=== PATIENT | male | born 1940 | race Caucasian/White ===

== ENCOUNTER 2017-05-01 08:13 | Emergency (ER) | payer MEDICARE, OTHER ==
--- NOTE | 2017-05-01 09:11 | EDM.PDOC ---
ED HPI GENERAL MEDICAL PROBLEM - General Chief Complaint: General Stated Complaint: FALL Time Seen by Provider: 05/01/17 09:05 Source of Information: Reports: Patient, RN History Limitations: Reports: No Limitations - History of Present Illness INITIAL COMMENTS - FREE TEXT/NARRATIVE: 76 yo male fell on a wet floor in PT and was sent to the ER for evaluation. Incurred small abrasions to the medial R ankle and L elbow. 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) (none) Rt ankle Pain Score (Numeric/FACES): 10 - Related Data Allergies Allergy/AdvReac Type Severity Reaction Status Date / Time No Known Allergies Allergy Verified 05/01/17 08:24 Home Meds: Home Meds Benztropine Mesylate 0.5 mg PO BID 09/06/13 [History] Diltiazem HCl [Diltiazem 24Hr Cd] 180 mg PO DAILY 09/06/13 [History] Latanoprost [Xalatan 0.005% Ophth Soln] 1 drop EYEBOTH BEDTIME 09/06/13 [History ] Lurasidone [Latuda] 20 mg PO BEDTIME 09/06/13 [History] Niacin [Niacin ER] 1,000 mg PO BEDTIME 09/06/13 [History] Ranitidine HCl [Ranitidine] 150 mg PO BEDTIME 09/06/13 [History] Simvastatin [Zocor] 20 mg PO BEDTIME 09/06/13 [History] metFORMIN [Glucophage] 500 mg PO DAILY 09/06/13 [History] Cholecalciferol (Vitamin D3) [Vitamin D3] 1,000 units PO DAILY #100 tablet 10/23 [Rx] LORazepam 0.5 mg PO BID PRN #60 tablet 10/23/13 [Rx] Metoprolol Tartrate [Lopressor] 50 mg PO Q12H #60 tablet 10/23/13 [Rx] Carboxymethylcellulose Sodium [Refresh Plus 0.5%] 1 drop EYEBOTH QID PRN [History] hydrOXYzine Pamoate [Vistaril] 25 mg PO BID 11/29/13 [History] Hydrocodone/Acetaminophen [Hydrocodone-Acetaminophen 5-325] 1 - 2 tab PO Q4H PRN 04/10/14 [History] Multivitamin [Multiple Vitamins] 1 each PO DAILY 04/10/14 [History] Warfarin Sodium [Jantoven] 5 mg PO ASDIRECTED 04/10/14 [History] Polyethylene Glycol 3350 [MiraLAX] 17 gm PO DAILY PRN 05/01/17 [History] Past Medical History HEENT History: Reports: Glaucoma, Impaired Vision Cardiovascular History: Reports: High Cholesterol, Hypertension Other Genitourinary History: hernia repair Psychiatric History: Reports: Anxiety Endocrine/Metabolic History: Reports: Diabetes, Type II Social & Family History - Family History Family Medical History: Noncontributory - Tobacco Use Smoking Status *Q: Never Smoker Second Hand Smoke Exposure: No - Caffeine Use Caffeine Use: Reports: Coffee - Alcohol Use Days Per Week of Alcohol Use: 0 - Recreational Drug Use Recreational Drug Use: No ED ROS GENERAL - Review of Systems Review Of Systems: See Below Constitutional: Reports: No Symptoms Musculoskeletal: Reports: No Symptoms Skin: Reports: Erythema, Wound (minor abrasions) Neurological: Reports: No Symptoms ED EXAM, GENERAL - Physical Exam Exam: See Below Exam Limited By: No Limitations General Appearance: Alert, WD/WN, No Apparent Distress Extremities: Normal Inspection, Normal Range of Motion, Non-Tender, No Pedal Edema Neurological: Alert, Oriented, CN II-XII Intact, Normal Cognition, No Motor/ Sensory Deficits Psychiatric: Normal Affect, Normal Mood Skin Exam: Warm, Dry, Normal Color, Other (very minor abrasions of the medial R ankle and L elbow. ) Lymphatic: No Adenopathy Course - Vital Signs Text/Narrative:: ankle [id number] Last Recorded V/S: Last Vital Signs Temp 36.3 C 05/01/17 08:15 Pulse 52 L 05/01/17 08:15 Resp 17 05/01/17 08:15 BP 134/80 05/01/17 08:15 Pulse Ox 99 05/01/17 08:15 - Orders/Labs/Meds Orders: Active Orders 24 hr Category Date Time Status Ankle Min 3V Rt [CR] Stat Exams 05/01/17 08:29 Taken Departure - Departure Time of Disposition: 09:21 Disposition: Home, Self-Care 01 Condition: Good Clinical Impression: Abrasions of multiple sites - Discharge Information Referrals: Narciso Lezama MD [Primary Care Provider] - Forms: ED Department Discharge Additional Instructions: Keep wounds clean. Recheck for signs of infection. - My Orders Last 24 Hours: My Active Orders 05/01/17 08:29 Ankle Min 3V Rt [CR] Stat - Assessment/Plan Last 24 Hours: My Active Orders 05/01/17 08:29 Ankle Min 3V Rt [CR] Stat
[2017-05-01 09:28] VITALS: BP 114/70
--- NOTE | 2017-05-01 10:48 | CR ---
INDICATION: Fall. RIGHT ANKLE: Three views of the right ankle were obtained and revealed the ankle mortise to appear intact without evidence of a fracture or dislocation. There is noted mild hypertrophic change at the medial malleolus compatible with osteoarthritis of mild degree. Minimal hypertrophic change is also noted anteriorly off the tibia. Small plantar calcaneal spur is noted. IMPRESSION: 1. No acute fracture or dislocation. 2. Mild osteoarthritis. 3. Small heel spur. MTDD
== END 2017-05-01 09:28 | disposition home or self-care (01) ==
LOC: FB.ED 08:13
DX: S90.511A Abrasion, right ankle, initial encounter (principal); S50.312A Abrasion of left elbow, initial encounter; W19.XXXA Unspecified fall, initial encounter; I10 Essential (primary) hypertension; E11.9 Type 2 diabetes mellitus without complications; E78.00 Pure hypercholesterolemia, unspecified; F41.9 Anxiety disorder, unspecified; Z98.890 Other specified postprocedural states; Z79.01 Long term (current) use of anticoagulants; Z79.899 Other long term (current) drug therapy; Z79.84 Long term (current) use of oral hypoglycemic drugs
CPT/HCPCS: 73610-RT; 99283

== ENCOUNTER 2018-03-30 09:05 | Inpatient (IN) | payer MEDICARE ==
[2018-03-30] MEDS: Sodium Chloride 0.9% 10 ML Syringe FLUSH PRN (09:30)
--- NOTE | 2018-03-30 11:08 | CT ---
INDICATION: Confusion. CT HEAD WITHOUT CONTRAST: Serial contiguous 2.5 and 5 mm sections were obtained through the brain without contrast, 03/30/2018 - no comparisons. Total exam DLP = 950.31 mGy-cm. The paranasal sinuses were fairly well-aerated with some thickening of the lining of a right posterior ethmoidal air cell. The mastoid air cells appear relatively normal on the right, question possibly a postsurgical change on the left. The left internal auditory canal appears to be significantly larger than the right, raising question of a previous or current mass in that area. It is not definitely visualized on the soft tissue window, however. This should be correlated clinically. MRI for this area may be of further diagnostic benefit. Calcifications are noted in the internal carotid arteries. No shift of midline structures or ventricular abnormalities were identified. There does appear to be a mild degree of patchy decreased density in the frontoparietal white matter and also more posteriorly at the occipital lobes. This may be on the basis of microvascular type disease process but should be correlated clinically, as other cause of leukoencephalopathy cannot be excluded. No bleeding site or hematoma or other definite acute abnormality was identified. No definite cranial abnormality was seen. IMPRESSION: 1. No definite acute intracranial abnormality. 2. Atherosclerotic disease with calcifications in the internal carotid artery. 3. Mild degree of microvascular disease type changes are noted in the white matter. 4. Thickening of the lining of a right posterior ethmoidal air cell. 5. There appears to be widening of the left internal auditory canal. This should be correlated clinically. MRI may be helpful for further evaluation, as an intracanalicular neoplastic process cannot be excluded. Also, postsurgical change may be present at the left mastoid air cells. Report was called to Dr. Harper at 1021 hours on 03/30/2018. [facility]
--- NOTE | 2018-03-30 11:12 | CR ---
INDICATION: Confusion, heart history. CHEST: PA and lateral views of the chest were obtained 03/30/2018 and compared with 08/26/2009 and 09/10/2013. The heart remains normal in size and shape. The aorta is tortuous with calcification in the arch. Bony structures appear to be grossly intact. A definite active infiltrate or effusion was not identified. IMPRESSION: No acute process. Report was called to Dr. Harper at 1021 hours on 03/30/2018. [facility]
--- NOTE | 2018-03-30 13:29 | PCM.HP ---
H&P History of Present Illness - General Date of Service: 03/30/18 Admit Problem/Dx: Admission Diagnosis/Problem Admission Diagnosis/Problem Confusion with nonfocal neurological examination Source of Information: Patient, Old Records, Provider History Limitations: Reports: Altered Mental Status - History of Present Illness Initial Comments - Free Text/Narative: Patient is a 77-year-old male with a history of schizophrenia who presents to the emergency department with confusion. According to outside records, patient was seen at the [facility] yesterday with gout. He had pain for 2 days in his left great toe and has a history of gout and had been treated in the past with indomethacin. He was started on indomethacin and discharged home. At that time apparently his mental status was normal although he did complain of having been under a lot of stress with the loss of 2 siblings and conflict with his sister. Apparently this morning the patient went into cardiac rehabilitation which he apparently attends routinely and had been confused according to staff. Later he presented to the emergency department by taxi acutely confused. He was unsure of how he arrived at the emergency department, had no complaints of pain , was coherent with speech and he was able to ambulate without difficulty but was extremely disoriented. As I am examining him, he is still quite disoriented. He doesn't really know why he is here or exactly where he is, doesn 't know the date or the time, doesn't know his name. Is able to give me fairly clear history which is completely inaccurate of his morning and confabulates fairly convincingly, but occasionally does note that he feels confused and doesn 't understand what's going on. Past medical history per [place] chart: Recent visit for gout yesterday Visit in December 2017 for a rash on his feet which apparently resolved spontaneously. Coronary artery disease with history of atrial fibrillation status post cardioversion, cardiac catheterization in 2009 showing mild 3 vessel coronary artery disease, last EKG in 2016 unremarkable. Currently on anticoagulation with warfarin. Hyperlipidemia Type 2 diabetes mellitus with out insulin with good control, last A1c 5.8% on 09/04 Schizophrenia in remission Hypersomnia Dyshidrosis Arthropathy Cataracts and mild glaucoma both eyes Current medications per [place] chart: Metformin 500 mg daily Indomethacin started yesterday 50 mg by mouth 3 times a day with meals Ranitidine 150 mg by mouth at bedtime Refresh eyedrops MiraLAX daily for constipation Lopressor 50 mg by mouth twice a day Vitamin D 1000 mg daily Coumadin as per Coumadin clinic Simvastatin 20 mg by mouth daily at bedtime Verelan ophthalmic 1 drop both eyes at bedtime for glaucoma Clonazepam one half tablet every morning Cogentin 0.5 mg by mouth twice a day BuSpar 30 mg by mouth twice a day Multivitamin daily Ativan 0.5 mg by mouth daily as needed Latuda 40 mg by mouth daily Vistaril 25 mg by mouth twice a day Social history: Patient reportedly lives alone. He is single with no children. Nonsmoker, denies alcohol use, denies illicit drug use. Confirmed with sister. Frontal headache Pain Score (Numeric/FACES): 6 - Related Data Allergies/Adverse Reactions: Allergies Allergy/AdvReac Type Severity Reaction Status Date / Time No Known Allergies Allergy Verified 03/30/18 12:25 Home Medications: Home Meds Benztropine Mesylate 0.5 mg PO BID 09/06/13 [History] Latanoprost [Xalatan 0.005% Ophth Soln] 1 drop EYEBOTH BEDTIME 09/06/13 [History ] Lurasidone [Latuda] 40 mg PO BEDTIME 09/06/13 [History] Ranitidine HCl [Ranitidine] 150 mg PO BEDTIME 09/06/13 [History] Simvastatin [Zocor] 20 mg PO BEDTIME 09/06/13 [History] metFORMIN [Glucophage] 500 mg PO DAILY 09/06/13 [History] Cholecalciferol (Vitamin D3) [Vitamin D3] 1,000 units PO DAILY #100 tablet 10/23 [Rx] LORazepam 0.5 mg PO BID PRN #60 tablet 10/23/13 [Rx] Metoprolol Tartrate [Lopressor] 50 mg PO Q12H #60 tablet 10/23/13 [Rx] Carboxymethylcellulose Sodium [Refresh Plus 0.5%] 1 drop EYEBOTH QID PRN [History] hydrOXYzine Pamoate [Vistaril] 25 mg PO BID 11/29/13 [History] Multivitamin [Multiple Vitamins] 1 each PO DAILY 04/10/14 [History] Warfarin Sodium [Jantoven] 5 mg PO ASDIRECTED 04/10/14 [History] Polyethylene Glycol 3350 [MiraLAX] 17 gm PO DAILY PRN 05/01/17 [History] ClonazePAM [KlonoPIN] 0.25 mg PO DAILY 03/30/18 [History] Indomethacin 50 mg PO TID 03/30/18 [History] busPIRone HCl [busPIRone] 15 mg PO BID 03/30/18 [History] Past Medical History HEENT History: Reports: Glaucoma, Impaired Vision Cardiovascular History: Reports: High Cholesterol, Hypertension, Other (See Below) Other Cardiovascular History: Hx: Atrial flutter. Gastrointestinal History: Reports: GERD Other Genitourinary History: hernia repair Musculoskeletal History: Reports: Gout Psychiatric History: Reports: Anxiety, Schizophrenia Endocrine/Metabolic History: Reports: Diabetes, Type II - Infectious Disease History Infectious Disease History: Reports: Chicken Pox, Measles, Mumps - Past Surgical History HEENT Surgical History: Reports: Tonsillectomy Social & Family History - Family History Family Medical History: Noncontributory - Tobacco Use Smoking Status *Q: Unknown Ever Smoked Second Hand Smoke Exposure: No - Caffeine Use Caffeine Use: Reports: None - Recreational Drug Use Recreational Drug Use: No H&P Review of Systems - Review of Systems: Review Of Systems: ROS reveals no pertinent complaints other than HPI. Exam - Exam Exam: See Below - Vital Signs Vital Signs: Last Vital Signs Temp 36.7 C 03/30/18 11:50 Pulse 54 L 03/30/18 11:50 Resp 18 03/30/18 11:50 BP 148/79 H 03/30/18 11:50 Pulse Ox 95 03/30/18 11:50 Weight: 100.834 kg - Exam General: Alert, Cooperative HEENT: PERRLA, Conjunctiva Clear, Mucosa Moist & [place], Posterior Pharynx Clear Neck: Supple, Trachea Midline Lungs: Clear to Auscultation, Normal Respiratory Effort Cardiovascular: Regular Rate, Regular Rhythm, Normal S1, Normal S2 GI/Abdominal Exam: Normal Bowel Sounds, Soft, Non-Tender, No Distention Back Exam: Normal Inspection, Full Range of Motion Extremities: Normal Inspection, Normal Range of Motion, Pedal Edema (trace bilateral.) Skin: Warm, Dry, Intact (No rash.) Neurological: Cranial Nerves Intact, Reflexes Equal Bilateral, Strength Equal Bilateral, Normal Gait Neuro Extensive - Mental Status: Alert, Normal Mood/Affect, Disorientation to Place, Disorientation to Time, Memory Loss-Remote Events, Memory Loss-Recent Events (speech fluent, occasionally confabulates but other times recognizes his confusion.) Neuro Extensive - Motor, Sensory, Reflexes: CN II-XII Intact - Patient Data Lab Results Last 24 hrs: Laboratory Results - last 24 hr 03/30/18 03/30/18 03/30/18 Range/Units 09:15 09:15 09:15 WBC 7.2 (4.5-12.0) X10-3/uL RBC 5.18 (4.30-5.75) x10(6)uL Hgb 15.0 (11.5-15.5) g/dL Hct 45.3 (30.0-51.3) % MCV 87.5 (80-96) fL MCH 29.0 (27.7-33.6) pg MCHC 33.1 (32.2-35.4) g/dL RDW 13.5 (11.5-15.5) % Plt Count 213 (125-369) X10(3)uL MPV 9.1 (7.4-10.4) fL Neut % (Auto) 71.7 (46-82) % Lymph % (Auto) 18.7 (13-37) % Rogers % (Auto) 7.7 (4-12) % Eos % (Auto) 1 (1.0-5.0) % Baso % (Auto) 1 (0-2) % Neut # (Auto) 5.2 (1.6-8.3) # Lymph # (Auto) 1.3 (0.6-5.0) # Rogers # (Auto) 0.6 (0.0-1.3) # Eos # (Auto) 0.1 (0.0-0.8) # Baso # (Auto) 0.0 (0.0-0.2) # PT (8.7-11.1) INR (0.89-1.13) Sodium 139 (135-145) mmol/L Potassium 4.3 (3.5-5.3) mmol/L Chloride 102 (100-110) mmol/L Carbon Dioxide 28 (21-32) mmol/L BUN 18 (7-18) mg/dL Creatinine 1.2 (0.70-1.30) mg/dL Est Cr Clr Drug Dosing TNP Estimated GFR (MDRD) 59 L (>60) BUN/Creatinine Ratio 15.0 (9-20) Glucose 119 H (80-116) mg/dL Calcium 9.2 (8.6-10.2) mg/dL Total Bilirubin 0.6 (0.1-1.3) mg/dL AST 22 (5-25) IU/L ALT 31 (12-36) U/L Alkaline Phosphatase 61 (56-112) IU/L Troponin I < 0.017 L (<0.017-0.056) ng/mL Total Protein 8.5 H (6.0-8.0) g/dL Albumin 4.4 (3.2-4.6) g/dL Globulin 4.1 g/dL Albumin/Globulin Ratio 1.1 / Range/Units 09:15 WBC (4.5-12.0) X10-3/uL RBC (4.30-5.75) x10(6)uL Hgb (11.5-15.5) g/dL Hct (30.0-51.3) % MCV (80-96) fL MCH (27.7-33.6) pg MCHC (32.2-35.4) g/dL RDW (11.5-15.5) % Plt Count (125-369) X10(3)uL MPV (7.4-10.4) fL Neut % (Auto) (46-82) % Lymph % (Auto) (13-37) % Rogers % (Auto) (4-12) % Eos % (Auto) (1.0-5.0) % Baso % (Auto) (0-2) % Neut # (Auto) (1.6-8.3) # Lymph # (Auto) (0.6-5.0) # Rogers # (Auto) (0.0-1.3) # Eos # (Auto) (0.0-0.8) # Baso # (Auto) (0.0-0.2) # PT 27.5 H (8.7-11.1) INR 2.87 H (0.89-1.13) Sodium (135-145) mmol/L Potassium (3.5-5.3) mmol/L Chloride (100-110) mmol/L Carbon Dioxide (21-32) mmol/L BUN (7-18) mg/dL Creatinine (0.70-1.30) mg/dL Est Cr Clr Drug Dosing Estimated GFR (MDRD) (>60) BUN/Creatinine Ratio (9-20) Glucose (80-116) mg/dL Calcium (8.6-10.2) mg/dL Total Bilirubin (0.1-1.3) mg/dL AST (5-25) IU/L ALT (12-36) U/L Alkaline Phosphatase (56-112) IU/L Troponin I (<0.017-0.056) ng/mL Total Protein (6.0-8.0) g/dL Albumin (3.2-4.6) g/dL Globulin g/dL Albumin/Globulin Ratio Result Diagrams: 03/30/18 09:15 03/30/18 09:15 Imaging Impressions Last 24 hrs: Verbal report from ER doctor that Head CT was negative. - Problem List (1) Altered mental status SNOMED Code(s): 956352891 ICD Code: R41.82 - ALTERED MENTAL STATUS, UNSPECIFIED Status: Acute Current Visit: Yes Problem Details: Highly suspicious for toxic metabolic encephalopathy. Indomethacin can in less than 1% of cases cause an acute confusion. As the patient is not uncomfortable and clinically stable, we'll hold medication and see if altered mental status clears. (2) Diabetes mellitus type 2 SNOMED Code(s): 83328441 ICD Code: E11.9 - TYPE 2 DIABETES MELLITUS WITHOUT COMPLICATIONS Status: Acute Priority: High Current Visit: No Problem Details: Hold metformin for now. (3) Gastroesophageal reflux disease SNOMED Code(s): 566438123 ICD Code: K21.9 - GASTRO-ESOPHAGEAL REFLUX DISEASE WITHOUT ESOPHAGITIS Status: Chronic Priority: Low Current Visit: No Problem Details: Continue ranitidine. (4) Schizophrenia SNOMED Code(s): 59187540 ICD Code: F20.9 - SCHIZOPHRENIA, UNSPECIFIED Status: Chronic Priority: Medium Current Visit: No Problem Details: Will continue Latuda, hold Cogentin for now as it can be associated with confusion. Patient's symptoms are not consistent with acute schizophrenia. More consistent with a toxic- metabolic encephalopathy. (5) DVT prophylaxis SNOMED Code(s): 251169602, 637467163 ICD Code: [id number] - Status: Acute Current Visit: Yes Problem Details: I'm going to hold off on chemoprophylaxis at this time as diagnosis is unclear. We will use SCDs and early ambulation. Problem List Initiated/Reviewed/Updated: Yes Orders Last 24hrs: Active Orders 24 hr Category Date Time Status Patient Status [ADT] Routine ADT 03/30/18 11:28 Active Oxygen Therapy [RC] PRN Care 03/30/18 11:28 Active Vital Signs [RC] 00,04,08,12,16,20 Care 03/30/18 11:28 Active Sodium Chloride 0.9% [Saline Flush] Med 03/30/18 09:44 Active 10 ml FLUSH ASDIRECTED PRN Peripheral IV Insertion Adult [OM.PC] Routine Oth 03/30/18 09:44 Ordered Resuscitation Status Routine Resus Stat 03/30/18 11:28 Ordered EKG 12 Lead [EK] Routine Ther 03/30/18 09:44 Ordered Medication Orders Sodium Chloride (Saline Flush) 10 ml FLUSH ASDIRECTED PRN PRN Reason: Keep Vein Open Last Admin: 03/30/18 09:30 Dose: 10 ml Assessment/Plan Comment:: CODE STATUS reviewed from the patient's acute advanced healthcare directive. The patient is a DNR/DNI, no intubation, no tube feeds or IV fluids. Patient's sister and [facility] was notified of his hospitalization by phone.
[2018-03-30] MEDS ORDERED: Acetaminophen 325 MG Tab PO PRN (13:59)
[2018-03-30] MEDS ORDERED: Polyethylene Glycol 3350 Powder 17 GM Packet PO PRN (14:04)
[2018-03-30] MEDS ORDERED: Warfarin 5 MG Tab PO SCH (14:15)
[2018-03-30] MEDS ORDERED: Warfarin Sliding Scale PO SCH (14:30)
[2018-03-30] MEDS ORDERED: Warfarin 2.5 MG Tab PO SCH (17:00)
[2018-03-30] MEDS ORDERED: LURASIDONE 40 MG PO SCH (21:00)
[2018-03-30] MEDS ORDERED: Famotidine 20 MG Tab PO SCH (21:00)
[2018-03-30] MEDS ORDERED: Latanoprost 0.005% Ophth Soln 2.5 ML Bottle EYEBOTH SCH (21:00)
[2018-03-30] MEDS: Metoprolol Tartrate 50 MG Tab PO SCH (21:10)
[2018-03-31] MEDS: Sodium Chloride 0.9% 10 ML Syringe FLUSH PRN (07:29)
[2018-03-31 07:54] VITALS: BP 138/74
[2018-03-31] MEDS: Metoprolol Tartrate 50 MG Tab PO SCH (08:25)
--- NOTE | 2018-03-31 10:45 | PCM.DCSUM1 ---
Discharge Summary - Hospital Course Free Text/Narrative:: Date of admission: 03/30/18 Date of discharge: 03/31/18 Consults: None Procedures: Head CT was done which showed no acute changes to explain the patient's mental status change. History of present illness: Patient is a 77-year-old male who presented the day prior to admission to the clinic in his normal state of health with a total that he felt was gouty. He was started on indomethacin and the following day, the day of admission, presented to the emergency department with acute confusion. The patient was in no distress and labs were stable. Initial evaluation was negative. Patient was admitted for toxic metabolic encephalopathy evaluation versus schizophrenia worsening. Hospital course: See below. Patient resolved very quickly over the next 24 hours and mental status returned to baseline. At the time of discharge, the patient was alert and oriented 3, able to give a clear history of recent events and performed very well on partial Mini-Mental Status exam without any deficits in memory, serial counting and orientation. Discharge instructions: Patient discharged to home. Stopp taking indomethacin. Resume other home meds. Follow-up in the outpatient setting next week with his primary care provider. Follow-up with INR clinic on Monday as INR on day of discharge was 3.17. Patient instructed to hold warfarin the day of discharge and resume his usual schedule Monday. - Discharge Data Discharge Date: 03/31/18 Discharge Disposition: Home, W Home Health Agency 06 Condition: Good - Discharge Diagnosis/Problem(s) (1) Altered mental status SNOMED Code(s): 585438498 ICD Code: R41.82 - ALTERED MENTAL STATUS, UNSPECIFIED Status: Acute Current Visit: Yes Problem Details: Highly suspicious for toxic metabolic encephalopathy. Indomethacin can in less than 1% of cases cause an acute confusion. Patient's mental status is now clear. Ready to return home. (2) Diabetes mellitus type 2 SNOMED Code(s): 23066764 ICD Code: E11.9 - TYPE 2 DIABETES MELLITUS WITHOUT COMPLICATIONS Status: Acute Priority: High Current Visit: No Problem Details: May restart metformin. (3) Gastroesophageal reflux disease SNOMED Code(s): 358377561 ICD Code: K21.9 - GASTRO-ESOPHAGEAL REFLUX DISEASE WITHOUT ESOPHAGITIS Status: Chronic Priority: Low Current Visit: No Problem Details: Continue ranitidine. (4) Schizophrenia SNOMED Code(s): 53365778 ICD Code: F20.9 - SCHIZOPHRENIA, UNSPECIFIED Status: Chronic Priority: Medium Current Visit: No Problem Details: Restart outpatient medications as previously ordered. (5) DVT prophylaxis SNOMED Code(s): 081473558, 732687244 ICD Code: [id number] - Status: Acute Current Visit: Yes Problem Details: Chronically anticoagulated. - Patient Summary/Data Consults: Consultations 03/30/18 14:08 Pharmacy Consult [Consult to Pharmacy] [CONS] Routine Comment: Physician Instructions: Quantity: Reason for Consult: warfarin dosing Special Instructions: INR 2-3 a fib indication - Patient Instructions Diet: Heart Healthy Diet Activity: As Tolerated Other/Special Instructions: You were admitted to the hospital with altered mental status likely due to your new medication indomethacin. Do not take this medication again. You may resume all your other home medications except hold your warfarin just for today and then restart your usual dose tomorrow. You should get your INR checked on Monday. Follow-up next week with your primary care provider in the clinic. - Discharge Plan Home Medications: Home Meds Benztropine Mesylate 0.5 mg PO BID 09/06/13 [History] Latanoprost [Xalatan 0.005% Ophth Soln] 1 drop EYEBOTH BEDTIME 09/06/13 [History ] Lurasidone [Latuda] 40 mg PO BEDTIME 09/06/13 [History] Ranitidine HCl [Ranitidine] 150 mg PO BEDTIME 09/06/13 [History] Simvastatin [Zocor] 20 mg PO BEDTIME 09/06/13 [History] metFORMIN [Glucophage] 500 mg PO DAILY 09/06/13 [History] Cholecalciferol (Vitamin D3) [Vitamin D3] 1,000 units PO DAILY #100 tablet 10/23 [Rx] LORazepam 0.5 mg PO BID PRN #60 tablet 10/23/13 [Rx] Metoprolol Tartrate [Lopressor] 50 mg PO Q12H #60 tablet 10/23/13 [Rx] Carboxymethylcellulose Sodium [Refresh Plus 0.5%] 1 drop EYEBOTH QID PRN [History] hydrOXYzine Pamoate [Vistaril] 25 mg PO BID 11/29/13 [History] Multivitamin [Multiple Vitamins] 1 each PO DAILY 04/10/14 [History] Warfarin Sodium [Jantoven] 5 mg PO SUMOTUWETHSA 04/10/14 [History] Polyethylene Glycol 3350 [MiraLAX] 17 gm PO DAILY PRN 05/01/17 [History] ClonazePAM [KlonoPIN] 0.25 mg PO DAILY 03/30/18 [History] Warfarin [Coumadin] 2.5 mg PO FR 03/30/18 [History] busPIRone HCl [busPIRone] 15 mg PO BID 03/30/18 [History] Patient Handouts: Confusion, Supporting Someone With Anxiety, Deep Vein Thrombosis Forms: ED Department Discharge Referrals: Narciso Lezama MD [Primary Care Provider] - - General Info Date of Service: 03/31/18 Subjective Update: On day of discharge patient was alert and oriented and feeling well. He felt back to baseline. No chest pain, no shortness of breath, no headache, no nausea , no vomiting. Appetite good. Ambulating and up in the room independently. - Patient Data Vitals - Most Recent: Last Vital Signs Temp 36.7 C 03/31/18 07:25 Pulse 54 L 03/31/18 08:25 Resp 20 03/31/18 07:25 BP 138/74 03/31/18 08:25 Pulse Ox 97 03/31/18 07:25 Weight - Most Recent: 100.471 kg I&O - Last 24 hours: Intake & Output 03/30/18 03/31/18 03/31/18 22:59 06:59 14:59 Intake Total 500 300 240 Output Total 300 550 500 Balance 200 -250 -260 Lab Results - Last 24 hrs: Laboratory Results - last 24 hr 03/30/18 03/30/18 03/30/18 Range/Units 09:17 14:25 14:25 WBC (4.5-12.0) X10-3/uL RBC (4.30-5.75) x10(6)uL Hgb (11.5-15.5) g/dL Hct (30.0-51.3) % MCV (80-96) fL MCH (27.7-33.6) pg MCHC (32.2-35.4) g/dL RDW (11.5-15.5) % Plt Count (125-369) X10(3)uL MPV (7.4-10.4) fL Neut % (Auto) (46-82) % Lymph % (Auto) (13-37) % [place] % (Auto) (4-12) % Eos % (Auto) (1.0-5.0) % Baso % (Auto) (0-2) % Neut # (Auto) (1.6-8.3) # Lymph # (Auto) (0.6-5.0) # Dubois # (Auto) (0.0-1.3) # Eos # (Auto) (0.0-0.8) # Baso # (Auto) (0.0-0.2) # PT (8.7-11.1) INR (0.89-1.13) Sodium (135-145) mmol/L Potassium (3.5-5.3) mmol/L Chloride (100-110) mmol/L Carbon Dioxide (21-32) mmol/L BUN (7-18) mg/dL Creatinine (0.70-1.30) mg/dL Est Cr Clr Drug Dosing mL/min Estimated GFR (MDRD) (>60) BUN/Creatinine Ratio (9-20) Glucose (80-116) mg/dL POC Glucose 112 (80-116) mg/dL Calcium (8.6-10.2) mg/dL Phosphorus 2.7 (2.6-4.6) mg/dL Magnesium 2.0 (1.8-2.5) mg/dL Total Bilirubin (0.1-1.3) mg/dL AST (5-25) IU/L ALT (12-36) U/L Alkaline Phosphatase (56-112) IU/L Ammonia Total Protein (6.0-8.0) g/dL Albumin (3.2-4.6) g/dL Globulin g/dL Albumin/Globulin Ratio Vitamin B12 745 (193-986) pg/mL TSH, Ultra Sensitive 1.25 (0.36-3.74) IU/mL Urine Color (YELLOW) Urine Appearance (CLEAR) Urine pH (5.0-6.5) Ur Specific [place] (1.010-1.025) Urine Protein (NEGATIVE) mg/dL Urine Glucose (UA) (NEGATIVE) mg/dL Urine Ketones (NEGATIVE) mg/dL Urine Occult Blood (NEGATIVE) Urine Nitrite (NEGATIVE) Urine Bilirubin (NEGATIVE) Urine Urobilinogen (NEGATIVE) mg/dL Ur Leukocyte Esterase (NEGATIVE) Urine RBC (0) Urine WBC (0) Ur Squamous Epith Cells (NS,R,O) Urine Bacteria (NS) Urine Opiates Screen (NEGATIVE) Ur Oxycodone Screen (NEGATIVE) Ur Propoxyphene Screen (NEGATIVE) Ur Barbituates Screen (NEGATIVE) Ur Tricyclics Screen (NEGATIVE) Ur Phencyclidine Scrn (NEGATIVE) Ur Amphetamine Screen (NEGATIVE) Urine MDMA Screen (NEGATIVE) U Benzodiazepines Scrn (NEGATIVE) U Cocaine Metab Screen (NEGATIVE) U Marijuana (THC) Screen (NEGATIVE) 03/30/18 03/30/18 03/30/18 Range/Units 14:25 17:21 18:20 WBC (4.5-12.0) X10-3/uL RBC (4.30-5.75) x10(6)uL Hgb (11.5-15.5) g/dL Hct (30.0-51.3) % MCV (80-96) fL MCH (27.7-33.6) pg MCHC (32.2-35.4) g/dL RDW (11.5-15.5) % Plt Count (125-369) X10(3)uL MPV (7.4-10.4) fL Neut % (Auto) (46-82) % Lymph % (Auto) (13-37) % [place] % (Auto) (4-12) % Eos % (Auto) (1.0-5.0) % Baso % (Auto) (0-2) % Neut # (Auto) (1.6-8.3) # Lymph # (Auto) (0.6-5.0) # [place] # (Auto) (0.0-1.3) # Eos # (Auto) (0.0-0.8) # Baso # (Auto) (0.0-0.2) # PT (8.7-11.1) INR (0.89-1.13) Sodium (135-145) mmol/L Potassium (3.5-5.3) mmol/L Chloride (100-110) mmol/L Carbon Dioxide (21-32) mmol/L BUN (7-18) mg/dL Creatinine (0.70-1.30) mg/dL Est Cr Clr Drug Dosing mL/min Estimated GFR (MDRD) (>60) BUN/Creatinine Ratio (9-20) Glucose (80-116) mg/dL POC Glucose 115 (80-116) mg/dL Calcium (8.6-10.2) mg/dL Phosphorus (2.6-4.6) mg/dL Magnesium (1.8-2.5) mg/dL Total Bilirubin (0.1-1.3) mg/dL AST (5-25) IU/L ALT (12-36) U/L Alkaline Phosphatase (56-112) IU/L Ammonia Total Protein (6.0-8.0) g/dL Albumin (3.2-4.6) g/dL Globulin g/dL Albumin/Globulin Ratio Vitamin B12 (193-986) pg/mL TSH, Ultra Sensitive (0.36-3.74) IU/mL Urine Color (YELLOW) Urine Appearance (CLEAR) Urine pH (5.0-6.5) Ur Specific [place] (1.010-1.025) Urine Protein (NEGATIVE) mg/dL Urine Glucose (UA) (NEGATIVE) mg/dL Urine Ketones (NEGATIVE) mg/dL Urine Occult Blood (NEGATIVE) Urine Nitrite (NEGATIVE) Urine Bilirubin (NEGATIVE) Urine Urobilinogen (NEGATIVE) mg/dL Ur Leukocyte Esterase (NEGATIVE) Urine RBC (0) Urine WBC (0) Ur Squamous Epith Cells (NS,R,O) Urine Bacteria (NS) Urine Opiates Screen Negative (NEGATIVE) Ur Oxycodone Screen Negative (NEGATIVE) Ur Propoxyphene Screen Negative (NEGATIVE) Ur Barbituates Screen Negative (NEGATIVE) Ur Tricyclics Screen Negative (NEGATIVE) Ur Phencyclidine Scrn Negative (NEGATIVE) Ur Amphetamine Screen Negative (NEGATIVE) Urine MDMA Screen Negative (NEGATIVE) U Benzodiazepines Scrn Negative (NEGATIVE) U Cocaine Metab Screen Negative (NEGATIVE) U Marijuana (THC) Screen Negative (NEGATIVE) 03/30/18 03/30/18 03/31/18 Range/Units 18:20 21:14 06:22 WBC (4.5-12.0) X10-3/uL RBC (4.30-5.75) x10(6)uL Hgb (11.5-15.5) g/dL Hct (30.0-51.3) % MCV (80-96) fL MCH (27.7-33.6) pg MCHC (32.2-35.4) g/dL RDW (11.5-15.5) % Plt Count (125-369) X10(3)uL MPV (7.4-10.4) fL Neut % (Auto) (46-82) % Lymph % (Auto) (13-37) % [place] % (Auto) (4-12) % Eos % (Auto) (1.0-5.0) % Baso % (Auto) (0-2) % Neut # (Auto) (1.6-8.3) # Lymph # (Auto) (0.6-5.0) # [place] # (Auto) (0.0-1.3) # Eos # (Auto) (0.0-0.8) # Baso # (Auto) (0.0-0.2) # PT (8.7-11.1) INR (0.89-1.13) Sodium (135-145) mmol/L Potassium (3.5-5.3) mmol/L Chloride (100-110) mmol/L Carbon Dioxide (21-32) mmol/L BUN (7-18) mg/dL Creatinine (0.70-1.30) mg/dL Est Cr Clr Drug Dosing mL/min Estimated GFR (MDRD) (>60) BUN/Creatinine Ratio (9-20) Glucose (80-116) mg/dL POC Glucose 131 H 120 H (80-116) mg/dL Calcium (8.6-10.2) mg/dL Phosphorus (2.6-4.6) mg/dL Magnesium (1.8-2.5) mg/dL Total Bilirubin (0.1-1.3) mg/dL AST (5-25) IU/L ALT (12-36) U/L Alkaline Phosphatase (56-112) IU/L Ammonia Total Protein (6.0-8.0) g/dL Albumin (3.2-4.6) g/dL Globulin g/dL Albumin/Globulin Ratio Vitamin B12 (193-986) pg/mL TSH, Ultra Sensitive (0.36-3.74) IU/mL Urine Color Yellow (YELLOW) Urine Appearance Clear (CLEAR) Urine pH 7.0 H (5.0-6.5) Ur Specific [place] 1.005 L (1.010-1.025) Urine Protein Negative (NEGATIVE) mg/dL Urine Glucose (UA) Normal (NEGATIVE) mg/dL Urine Ketones Negative (NEGATIVE) mg/dL Urine Occult Blood Negative (NEGATIVE) Urine Nitrite Negative (NEGATIVE) Urine Bilirubin Negative (NEGATIVE) Urine Urobilinogen Normal (NEGATIVE) mg/dL Ur Leukocyte Esterase Negative (NEGATIVE) Urine RBC 0-5 (0) Urine WBC 0-5 (0) Ur Squamous Epith Cells Rare (NS,R,O) Urine Bacteria Few H (NS) Urine Opiates Screen (NEGATIVE) Ur Oxycodone Screen (NEGATIVE) Ur Propoxyphene Screen (NEGATIVE) Ur Barbituates Screen (NEGATIVE) Ur Tricyclics Screen (NEGATIVE) Ur Phencyclidine Scrn (NEGATIVE) Ur Amphetamine Screen (NEGATIVE) Urine MDMA Screen (NEGATIVE) U Benzodiazepines Scrn (NEGATIVE) U Cocaine Metab Screen (NEGATIVE) U Marijuana (THC) Screen (NEGATIVE) 03/31/18 03/31/18 03/31/18 Range/Units 06:25 06:25 06:25 WBC 5.0 (4.5-12.0) X10-3/uL RBC 4.59 (4.30-5.75) x10(6)uL Hgb 13.6 (11.5-15.5) g/dL Hct 40.3 (30.0-51.3) % MCV 87.8 (80-96) fL MCH 29.5 (27.7-33.6) pg MCHC 33.7 (32.2-35.4) g/dL RDW 13.6 (11.5-15.5) % Plt Count 186 (125-369) X10(3)uL MPV 9.4 (7.4-10.4) fL Neut % (Auto) 57.8 (46-82) % Lymph % (Auto) 28.1 (13-37) % [place] % (Auto) 9.4 (4-12) % Eos % (Auto) 4 (1.0-5.0) % Baso % (Auto) 1 (0-2) % Neut # (Auto) 2.9 (1.6-8.3) # Lymph # (Auto) 1.4 (0.6-5.0) # [place] # (Auto) 0.5 (0.0-1.3) # Eos # (Auto) 0.2 (0.0-0.8) # Baso # (Auto) 0.0 (0.0-0.2) # PT 30.4 H (8.7-11.1) INR 3.17 H (0.89-1.13) Sodium 139 (135-145) mmol/L Potassium 4.2 (3.5-5.3) mmol/L Chloride 104 (100-110) mmol/L Carbon Dioxide 31 (21-32) mmol/L BUN 15 (7-18) mg/dL Creatinine 1.0 (0.70-1.30) mg/dL Est Cr Clr Drug Dosing 71.93 mL/min Estimated GFR (MDRD) > 60 (>60) BUN/Creatinine Ratio 15.0 (9-20) Glucose 121 H (80-116) mg/dL POC Glucose (80-116) mg/dL Calcium 8.5 L (8.6-10.2) mg/dL Phosphorus (2.6-4.6) mg/dL Magnesium (1.8-2.5) mg/dL Total Bilirubin 0.6 (0.1-1.3) mg/dL AST 20 (5-25) IU/L ALT 26 D (12-36) U/L Alkaline Phosphatase 50 L (56-112) IU/L Ammonia Total Protein 7.2 (6.0-8.0) g/dL Albumin 3.1 L (3.2-4.6) g/dL Globulin 4.1 g/dL Albumin/Globulin Ratio 0.8 Vitamin B12 (193-986) pg/mL TSH, Ultra Sensitive (0.36-3.74) IU/mL Urine Color (YELLOW) Urine Appearance (CLEAR) Urine pH (5.0-6.5) Ur Specific [place] (1.010-1.025) Urine Protein (NEGATIVE) mg/dL Urine Glucose (UA) (NEGATIVE) mg/dL Urine Ketones (NEGATIVE) mg/dL Urine Occult Blood (NEGATIVE) Urine Nitrite (NEGATIVE) Urine Bilirubin (NEGATIVE) Urine Urobilinogen (NEGATIVE) mg/dL Ur Leukocyte Esterase (NEGATIVE) Urine RBC (0) Urine WBC (0) Ur Squamous Epith Cells (NS,R,O) Urine Bacteria (NS) Urine Opiates Screen (NEGATIVE) Ur Oxycodone Screen (NEGATIVE) Ur Propoxyphene Screen (NEGATIVE) Ur Barbituates Screen (NEGATIVE) Ur Tricyclics Screen (NEGATIVE) Ur Phencyclidine Scrn (NEGATIVE) Ur Amphetamine Screen (NEGATIVE) Urine MDMA Screen (NEGATIVE) U Benzodiazepines Scrn (NEGATIVE) U Cocaine Metab Screen (NEGATIVE) U Marijuana (THC) Screen (NEGATIVE) Med Orders - Current: Current Medications Acetaminophen (Tylenol) 650 mg PO Q4H PRN PRN Reason: Pain (Mild 1-3)/fever Famotidine (Pepcid) 20 mg PO BEDTIME [facility] Last Admin: 03/30/18 21:10 Dose: 20 mg Latanoprost (Xalatan 0.005% Ophth Soln) 0 ml EYEBOTH BEDTIME [facility] Last Admin: 03/30/18 21:09 Dose: 1 drop Metoprolol Tartrate (Lopressor) 50 mg PO Q12H [facility] Last Admin: 03/31/18 08:25 Dose: 50 mg Non-Formulary Medication (Lurasidone [Latuda]) 40 mg PO BEDTIME [facility] Polyethylene Glycol (Miralax) 17 gm PO DAILY PRN PRN Reason: Constipation Sodium Chloride (Saline Flush) 10 ml FLUSH ASDIRECTED PRN PRN Reason: Keep Vein Open Last Admin: 03/31/18 07:29 Dose: 10 ml Warfarin Sodium (Coumadin Sliding Scale) 1 each PO ASDIRECTED [facility] Warfarin Sodium (Coumadin) 1.25 mg PO 1600 [facility] Stop: 03/31/18 16:01 Discontinued Medications Warfarin Sodium (Coumadin) 2.5 mg PO 1600 [facility] Stop: 03/30/18 17:01 Last Admin: 03/30/18 17:23 Dose: 2.5 mg - Exam General: Reports: Alert, Oriented, Cooperative, No Acute Distress HEENT: Reports: Pupils Equal, Pupils Reactive Neck: Reports: Supple Lungs: Reports: Clear to Auscultation, Normal Respiratory Effort Cardiovascular: Reports: Regular Rate, Regular Rhythm, No Murmurs GI/Abdominal Exam: Normal Bowel Sounds, Soft, Non-Tender, No Distention Extremities: Normal Inspection, No Pedal Edema Skin: Reports: Warm, Dry, Intact Psy/Mental Status: Reports: Alert, Normal Affect, Normal Mood
[2018-03-31] MEDS ORDERED: Warfarin 2.5 MG Tab PO SCH (16:00)
--- NOTE | 2018-04-02 10:59 | ER ---
DATE SEEN: 03/30/2018 HISTORY OF PRESENT ILLNESS: This 77-year-old resident of [facility] came to cardiac rehab today and became very confused. Cardiac Rehab then sent him to the ED for further evaluation. When asked why he is here, he said "I must have collapsed, I feel like I am in a dream. I think I came here for some kind of checkup." He thinks it is May, he thinks it is Monday and has slight nausea, is slightly lightheaded and thinks it is the fall season and football season is on. 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 He is oriented x1. He does not know the season. He is oriented to self, has mild old fund of knowledge, but he is able to add, but has difficulty subtracting and speaks slowly and thinks that people are going to have to take care of his dog at home. He would call the people where he worked, Jey at [employer] [facility], and they will take care of his dog. He does not know if he has a dog at home. The patient lives alone. PAST MEDICAL HISTORY: Schizophrenia in remission, type 2 diabetes, arthropathy, atrial flutter resolved, coronary artery disease, dyslipidemia, and he is using Coumadin. CURRENT MEDICATIONS: 1. Metformin 500 mg daily. 2. Indocin t.i.d. for arthritis. 3. Zantac 150 mg at bedtime. 4. Refresh eye drops. 5. MiraLax. 6. Metoprolol tartrate twice a day 50 mg daily. 7. Vitamin D. 8. Warfarin 5 mg daily. 9. Simvastatin. 10.Xalatan 1 drop both eyes at bedtime. 11.Klonopin 0.5 mg in the morning. 12.Cogentin. 13.BuSpar. 14.Multivitamins. 15.Lorazepam. 16.Latuda 40 mg daily. 17.Hydroxyzine. ALLERGIES: No allergies. PAST SURGICAL HISTORY: He thinks he has had previous surgery of appendectomy. REVIEW OF SYSTEMS: Negative except for wears glasses and decreased hearing. Denies chest pain, shortness of breath, or cough or abdominal discomfort. He has mild nausea. He knows he has hypertension and GERD. Denies constipation or blood in the stool. Denies difficulty passing urine and has mild arthritis in his right knee. PHYSICAL EXAMINATION: VITAL SIGNS: Blood pressure 154/70. Heart rate is sinus rhythm, 61. HEENT: PERRLA intact. Pharynx without abnormality. Gag in place. Mucosa moist. Mouth is dry. Hearing is slightly decreased. Wears glasses. NECK: Soft bruits, almost imperceptible. HEART: S1, S2. No murmur. LUNGS: Clear. No rales, rhonchi, or wheezes. ABDOMEN: Soft. No guarding. No abdominal discomfort. Bowel sounds normal. Increased abdominal girth. No CVA percussion tenderness. SPINE: Nontender to palpation. EXTREMITIES: Lower extremities, palpation of the right medial and lateral joint lines, mild tenderness. No swelling. Lower extremities, no edema. Deep tendon reflexes, hypoactive, but present in upper and lower extremities. NEURO: Cranial nerves 2 through 12 intact. Oriented x2. He walks with a walker. He is slightly unsteady with mild truncal ataxia when sitting up. DIAGNOSTIC STUDIES: CT of the head demonstrated microvascular calcification of internal carotid artery. Chest x-ray, no abnormalities noted. Laboratory Findings: Hemoglobin normal 15.0, white count normal 7200 with normal differential, 72 PMNs, 19 lymphocytes, 8 monos, platelets normal 213,000. INR is elevated 2.87 (on Coumadin). Complete metabolic panel is normal. Troponin 0.017 and is normal. Glucose slightly elevated at 119, GFR 59, otherwise sodium 139, potassium 4.3, chloride 102, CO2 of 28, BUN 18, creatinine 1.2. ASSESSMENT: 1. Schizophrenia. 2. Schizophrenic break possibly. 3. Rule out toxic metabolic encephalopathy related to taking excessive Latuda. He is not on lithium. 4. Rule out hypothyroidism. 5. Obesity. 6. Rule out global amnesia. 7. Right knee arthritis. 8. Diabetes with well-controlled glucose. 9. Marked confusion consistent with global amnesia, however, will take time to figure this out. 10.Hypertension, controlled. 11.Gastroesophageal reflux disease. 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 13.Dyslipidemia. He is on anticoagulants. The patient discussed with Dr. Sutherland. The patient admitted for observation. EKG demonstrated sinus rhythm without ST elevation or arrhythmia. His atrial fibrillation in the past has resolved/atrial arrhythmias resolved. 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 He does not have that today and he has had mild tremor more on the right compared to the left, slow, possible early parkinsonian changes or schizophrenia- mediated tremor that he has had all along. /[id number] BEULAH/OTTONIEL
== END 2018-03-31 11:35 | disposition home health service (06) | DRG 92 ==
LOC: FB.ED 09:05 → FB.MS 11:28 → OBSVTOIN 11:28
PROVIDERS: ADMIT Family Medicine; ATTEND Family Medicine
DX: R41.82 Altered mental status, unspecified (principal); G92 Toxic encephalopathy; I48.92 Unspecified atrial flutter; Z66 Do not resuscitate; T39.395A Adverse effect of other nonsteroidal anti-inflammatory drugs [NSAID], initial encounter; F20.9 Schizophrenia, unspecified; E11.9 Type 2 diabetes mellitus without complications; Z79.01 Long term (current) use of anticoagulants; I25.10 Atherosclerotic heart disease of native coronary artery without angina pectoris; E78.5 Hyperlipidemia, unspecified; M19.90 Unspecified osteoarthritis, unspecified site; I10 Essential (primary) hypertension; K21.9 Gastro-esophageal reflux disease without esophagitis; H40.9 Unspecified glaucoma; M10.9 Gout, unspecified; H54.7 Unspecified visual loss; Z79.84 Long term (current) use of oral hypoglycemic drugs
CPT/HCPCS: 36415; 70450; 71046; 80053; 80305-QW; 81001; 82140; 82607; 82962; 83735; 84100; 84443; 84484; 85025; 85610; 93005; 99285; A9270-GY; J7050

== ENCOUNTER 2018-12-22 06:05 | Emergency (ER) | payer MEDICARE ==
--- NOTE | 2018-12-22 06:43 | EDM.PDOC ---
<Dakotah Eaton M - Last Filed: 12/22/18 08:34> ED HPI GENERAL MEDICAL PROBLEM - General Chief Complaint: Chest Pain Stated Complaint: CHEST PAIN Time Seen by Provider: 12/22/18 06:20 chest Pain Score (Numeric/FACES): 4 - Related Data Allergies Allergy/AdvReac Type Severity Reaction Status Date / Time indomethacin Allergy Confusion Verified 12/22/18 06:33 Home Meds: Home Meds Benztropine Mesylate 0.5 mg PO DAILY 09/06/13 [History] Lurasidone [Latuda] 40 mg PO BEDTIME 09/06/13 [History] Simvastatin [Zocor] 20 mg PO BEDTIME 09/06/13 [History] metFORMIN [Glucophage] 500 mg PO DAILY 09/06/13 [History] Cholecalciferol (Vitamin D3) [Vitamin D3] 1,000 units PO DAILY #100 tablet 10/23 [Rx] Metoprolol Tartrate [Lopressor] 50 mg PO Q12H #60 tablet 10/23/13 [Rx] Multivitamin [Multiple Vitamins] 1 each PO DAILY 04/10/14 [History] Warfarin Sodium [Jantoven] 5 mg PO DAILY 04/10/14 [History] ClonazePAM [KlonoPIN] 0.5 mg PO DAILY 03/30/18 [History] busPIRone HCl [busPIRone] 30 mg PO DAILY 03/30/18 [History] Ranitidine HCl [Ranitidine] 150 mg PO DAILY 12/22/18 [History] Course - Vital Signs Last Recorded V/S: Last Vital Signs Temp 36.5 C 12/22/18 06:10 Pulse 64 12/22/18 06:10 Resp 16 12/22/18 07:00 BP 145/70 H 12/22/18 07:00 Pulse Ox 97 12/22/18 07:00 Pt was signed out to me at 7 am due to gilberto back pain Tx: Toradol Reexam: Pt was doing better and requested to be D/C'd Impression: Chronic Low back pain with exacerbation. - Orders/Labs/Meds Labs: Laboratory Tests 12/22/18 12/22/18 12/22/18 Range/Units 06:25 06:25 06:25 WBC 8.2 (4.5-12.0) X10-3/uL RBC 4.83 (4.30-5.75) x10(6)uL Hgb 14.0 (13.5-17.8) g/dL Hct 42.2 (30.0-51.3) % MCV 87.4 (80-96) fL MCH 29.0 (27.7-33.6) pg MCHC 33.2 (32.2-35.4) g/dL RDW 13.8 (11.5-15.5) % Plt Count 220 (125-369) X10(3)uL MPV 9.1 (7.4-10.4) fL Neut % (Auto) 63.5 (46-82) % Lymph % (Auto) 21.9 (13-37) % Loup % (Auto) 9.1 (4-12) % Eos % (Auto) 3 (1.0-5.0) % Baso % (Auto) 2 (0-2) % Neut # (Auto) 5.2 (1.6-8.3) # Lymph # (Auto) 1.8 (0.6-5.0) # Loup # (Auto) 0.7 (0.0-1.3) # Eos # (Auto) 0.3 (0.0-0.8) # Baso # (Auto) 0.2 (0.0-0.2) # PT 27.1 H (8.7-11.1) INR 2.82 H (0.89-1.13) D-Dimer, Quantitative 0.27 (0.0-0.59) mg/LFEU Sodium 139 (135-145) mmol/L Potassium 3.9 (3.5-5.3) mmol/L Chloride 103 (100-110) mmol/L Carbon Dioxide 29 (21-32) mmol/L BUN 20 H (7-18) mg/dL Creatinine 0.9 (0.70-1.30) mg/dL Est Cr Clr Drug Dosing TNP Estimated GFR (MDRD) > 60 (>60) BUN/Creatinine Ratio 22.2 H (9-20) Glucose 134 H (80-116) mg/dL Calcium 8.9 (8.6-10.2) mg/dL Total Bilirubin 0.6 (0.1-1.3) mg/dL AST 17 D (5-25) IU/L ALT 19 D (12-36) U/L Alkaline Phosphatase 62 (56-112) IU/L Troponin I (<0.017-0.056) ng/mL Total Protein 7.3 (6.0-8.0) g/dL Albumin 3.4 (3.2-4.6) g/dL Globulin 3.9 g/dL Albumin/Globulin Ratio 0.9 /03/06 Range/Units 06:25 WBC (4.5-12.0) X10-3/uL RBC (4.30-5.75) x10(6)uL Hgb (13.5-17.8) g/dL Hct (30.0-51.3) % MCV (80-96) fL MCH (27.7-33.6) pg MCHC (32.2-35.4) g/dL RDW (11.5-15.5) % Plt Count (125-369) X10(3)uL MPV (7.4-10.4) fL Neut % (Auto) (46-82) % Lymph % (Auto) (13-37) % Loup % (Auto) (4-12) % Eos % (Auto) (1.0-5.0) % Baso % (Auto) (0-2) % Neut # (Auto) (1.6-8.3) # Lymph # (Auto) (0.6-5.0) # Loup # (Auto) (0.0-1.3) # Eos # (Auto) (0.0-0.8) # Baso # (Auto) (0.0-0.2) # PT (8.7-11.1) INR (0.89-1.13) D-Dimer, Quantitative (0.0-0.59) mg/LFEU Sodium (135-145) mmol/L Potassium (3.5-5.3) mmol/L Chloride (100-110) mmol/L Carbon Dioxide (21-32) mmol/L BUN (7-18) mg/dL Creatinine (0.70-1.30) mg/dL Est Cr Clr Drug Dosing Estimated GFR (MDRD) (>60) BUN/Creatinine Ratio (9-20) Glucose (80-116) mg/dL Calcium (8.6-10.2) mg/dL Total Bilirubin (0.1-1.3) mg/dL AST (5-25) IU/L ALT (12-36) U/L Alkaline Phosphatase (56-112) IU/L Troponin I < 0.017 L (<0.017-0.056) ng/mL Total Protein (6.0-8.0) g/dL Albumin (3.2-4.6) g/dL Globulin g/dL Albumin/Globulin Ratio Meds: Medications Discontinued Medications Generic Name Dose Route Start Last Admin Trade Name Freq PRN Reason Stop Dose Admin Ketorolac Tromethamine 30 mg 12/22/18 07:50 12/22/18 08:00 Toradol IM 12/22/18 07:51 30 mg ONETIME ONE Administration Departure - Departure Time of Disposition: 08:35 Disposition: Home, Self-Care 01 Condition: Good Clinical Impression: 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 Please f/u, come back if your symptoms gt worse acutely <Kobe Rodriguez - Last Filed: 12/24/18 07:24> ED HPI GENERAL MEDICAL PROBLEM - General Source of Information: Reports: Patient, EMS History Limitations: Reports: No Limitations - History of Present Illness INITIAL COMMENTS - FREE TEXT/NARRATIVE: Karan comes into [facility] ED with L sided chest pain, with some radiation into the LUE. Pain seems dull, intermittent, and some features of numbness, although he could not quantify the intensity. Pain seems to correlate with a "sciatic condition" affecting his LLE which has been managed recently with PT. There is no diaphoresis, marli SOB, GI upset or palpitations. He reports med compliance. Past Medical History HEENT History: Reports: Glaucoma, Impaired Vision Cardiovascular History: Reports: High Cholesterol, Hypertension, Other (See Below) Other Cardiovascular History: Hx: Atrial flutter. Gastrointestinal History: Reports: GERD Other Genitourinary History: hernia repair Musculoskeletal History: Reports: Gout Psychiatric History: Reports: Anxiety, Schizophrenia Endocrine/Metabolic History: Reports: Diabetes, Type II - Infectious Disease History Infectious Disease History: Reports: Chicken Pox, Measles, Mumps - Past Surgical History HEENT Surgical History: Reports: Tonsillectomy Social & Family History - Family History Family Medical History: Noncontributory - Caffeine Use Caffeine Use: Reports: None ED ROS GENERAL - Review of Systems Review Of Systems: See Below Constitutional: Reports: No Symptoms HEENT: Reports: No Symptoms Respiratory: Reports: No Symptoms Cardiovascular: Reports: Chest Pain, Edema Endocrine: Reports: No Symptoms GI/Abdominal: Reports: No Symptoms : Reports: No Symptoms Musculoskeletal: Reports: Leg Pain Skin: Reports: No Symptoms Neurological: Reports: Numbness, Tingling Psychiatric: Reports: No Symptoms Hematologic/Lymphatic: Reports: No Symptoms Immunologic: Reports: No Symptoms ED EXAM, GENERAL - Physical Exam Exam: See Below Exam Limited By: No Limitations General Appearance: Alert, WD/WN, No Apparent Distress, Obese Eye Exam: Bilateral Eye: EOMI, Normal Inspection, PERRL Ears: Normal External Exam Nose: Normal Inspection Throat/Mouth: Normal Inspection, Normal Oropharynx Head: Normocephalic Neck: Normal Inspection, Supple Respiratory/Chest: No Respiratory Distress, Lungs Clear, Normal Breath Sounds, No Accessory Muscle Use, Chest Non-Tender Cardiovascular: Regular Rate, Rhythm, No Murmur GI/Abdominal: Normal Bowel Sounds, Soft, Non-Tender, No Organomegaly, No Distention, No Mass (Male) Exam: Deferred Rectal (Males) Exam: Deferred Back Exam: Normal Inspection Extremities: Pedal Edema Neurological: Alert, Oriented, CN II-XII Intact, No Motor/Sensory Deficits Psychiatric: Flat Affect Skin Exam: Warm, Dry, Intact, Normal Color Lymphatic: No Adenopathy Course - Vital Signs Last Recorded V/S: Last Vital Signs Temp 36.5 C 12/22/18 06:10 Pulse 64 12/22/18 06:10 Resp 16 12/22/18 07:00 BP 145/70 H 12/22/18 07:00 Pulse Ox 97 12/22/18 07:00 - Orders/Labs/Meds Meds: Medications Discontinued Medications Generic Name Dose Route Start Last Admin Trade Name Freq PRN Reason Stop Dose Admin Ketorolac Tromethamine 30 mg 12/22/18 07:50 12/22/18 08:00 Toradol IM 12/22/18 07:51 30 mg ONETIME ONE Administration Departure - Departure Condition: Fair - Problem List & Annotations (1) Chest pain SNOMED Code(s): 31380850 Code(s): R07.9 - CHEST PAIN, UNSPECIFIED Status: Acute Priority: High Annotation/Comment:: No furthur episodes. (2) Sciatica associated with disorder of lumbosacral spine SNOMED Code(s): 26625212, 283549651 Code(s): M53.87 - OTHER SPECIFIED DORSOPATHIES, LUMBOSACRAL REGION Status: Acute - Problem List Review Problem List Initiated/Reviewed/Updated: Yes - Assessment/Plan Plan: Follow up with PCP.
[2018-12-22 07:06] VITALS: BP 145/70
[2018-12-22] MEDS ORDERED: Ketorolac 30 MG/ML SDV IM ONE (07:50)
== END 2018-12-22 08:55 | disposition home or self-care (01) ==
LOC: FB.ED 06:05
DX: M54.42 Lumbago with sciatica, left side (principal); R07.9 Chest pain, unspecified; I10 Essential (primary) hypertension; E78.00 Pure hypercholesterolemia, unspecified; E11.9 Type 2 diabetes mellitus without complications; K21.9 Gastro-esophageal reflux disease without esophagitis; Z79.899 Other long term (current) drug therapy; Z79.84 Long term (current) use of oral hypoglycemic drugs; Z79.01 Long term (current) use of anticoagulants; Z88.8 Allergy status to other drugs, medicaments and biological substances
CPT/HCPCS: 36415; 80053; 84484; 85025; 85379; 85610; 93005; 96372; 99285; J1885

== ENCOUNTER 2019-09-24 05:01 | Emergency (ER) | payer MEDICARE ==
--- NOTE | 2019-09-24 05:48 | EDM.PDOC ---
ED HPI GENERAL MEDICAL PROBLEM - General Chief Complaint: General Stated Complaint: confusion Time Seen by Provider: 09/24/19 05:10 Source of Information: Reports: Patient History Limitations: Reports: No Limitations - History of Present Illness INITIAL COMMENTS - FREE TEXT/NARRATIVE: Patient presented to the ED via EMS because of confusion. [facility] staff reported that he is confused and required more help than usual but when he arrived in the ED he is AAOx3 and is able to follow commands and transferred himself from the gurney to the bed. - Related Data Allergies Allergy/AdvReac Type Severity Reaction Status Date / Time indomethacin Allergy Confusion Verified 12/22/18 06:33 Home Meds: Home Meds Benztropine Mesylate 0.5 mg PO DAILY 09/06/13 [History] Lurasidone [Latuda] 40 mg PO BEDTIME 09/06/13 [History] metFORMIN [Glucophage] 500 mg PO DAILY 09/06/13 [History] Metoprolol Tartrate [Lopressor] 50 mg PO Q12H #60 tablet 10/23/13 [Rx] Multivitamin [Multiple Vitamins] 1 each PO DAILY 04/10/14 [History] Warfarin Sodium [Jantoven] 5 mg PO DAILY 04/10/14 [History] ClonazePAM [KlonoPIN] 0.5 mg PO DAILY 03/30/18 [History] busPIRone HCl [busPIRone] 30 mg PO DAILY 03/30/18 [History] Past Medical History HEENT History: Reports: Glaucoma, Impaired Vision Cardiovascular History: Reports: High Cholesterol, Hypertension, Other (See Below) Other Cardiovascular History: Hx: Atrial flutter. Gastrointestinal History: Reports: GERD Other Genitourinary History: hernia repair Musculoskeletal History: Reports: Gout Psychiatric History: Reports: Anxiety, Schizophrenia Endocrine/Metabolic History: Reports: Diabetes, Type II - Infectious Disease History Infectious Disease History: Reports: Chicken Pox, Measles, Mumps - Past Surgical History HEENT Surgical History: Reports: Tonsillectomy Social & Family History - Family History Family Medical History: Noncontributory - Caffeine Use Caffeine Use: Reports: None ED ROS GENERAL - Review of Systems Review Of Systems: See Below Constitutional: Reports: No Symptoms HEENT: Reports: No Symptoms Respiratory: Reports: No Symptoms Cardiovascular: Reports: No Symptoms Endocrine: Reports: No Symptoms GI/Abdominal: Reports: No Symptoms : Reports: No Symptoms Musculoskeletal: Reports: No Symptoms Skin: Reports: No Symptoms Neurological: Reports: No Symptoms Psychiatric: Denies: Confusion Hematologic/Lymphatic: Reports: No Symptoms Immunologic: Reports: No Symptoms ED EXAM, GENERAL - Physical Exam Exam: See Below Exam Limited By: No Limitations General Appearance: Alert, No Apparent Distress Ears: Normal External Exam, Normal Canal, Hearing Grossly Normal Nose: Normal Inspection, Normal Mucosa, No Blood Throat/Mouth: Normal Inspection, Normal Lips, Normal Teeth Head: Atraumatic, Normocephalic Neck: Normal Inspection, Supple, Non-Tender, Full Range of Motion Respiratory/Chest: No Respiratory Distress, Lungs Clear, Normal Breath Sounds, No Accessory Muscle Use, Chest Non-Tender Cardiovascular: Normal Peripheral Pulses, Regular Rate, Rhythm, No Edema, No Gallop, No JVD, No Murmur, No Rub GI/Abdominal: Normal Bowel Sounds, Soft, Non-Tender, No Organomegaly, No Distention, No Abnormal Bruit, No Mass, Pelvis Stable Neurological: Alert, Oriented, CN II-XII Intact, Normal Cognition, Normal Gait, Normal Reflexes, No Motor/Sensory Deficits Psychiatric: Normal Affect, Normal Mood Skin Exam: Warm, Dry, Intact, Normal Color Lymphatic: No Adenopathy Course - Vital Signs Text/Narrative:: reassurance continue meds for UTI Last Recorded V/S: Last Vital Signs Temp 36.8 C 09/24/19 05:11 Pulse 102 H 09/24/19 05:11 Resp 18 09/24/19 05:11 BP 151/81 H 09/24/19 05:11 Pulse Ox 96 09/24/19 05:11 Departure - Departure Time of Disposition: 05:45 Disposition: Home, Self-Care 01 Condition: Good Clinical Impression: UTI (urinary tract infection) - Discharge Information Instructions: Urinary Tract Infection, Adult, [id number] Referrals: PCP,None [Primary Care Provider] - Forms: ED Department Discharge Additional Instructions: increase oral fluids continue your medicines for UTI follow up as needed Sepsis Event Note - Focused Exam Date Exam was Performed: 09/26/19 Time Exam was Performed: 05:52
[2019-09-24 05:57] VITALS: BP 151/81; PULSE 102
== END 2019-09-24 06:43 | disposition home or self-care (01) ==
LOC: FB.ED 05:01
DX: N39.0 Urinary tract infection, site not specified (principal); I10 Essential (primary) hypertension; E11.9 Type 2 diabetes mellitus without complications; F20.9 Schizophrenia, unspecified; Z88.8 Allergy status to other drugs, medicaments and biological substances; Z79.899 Other long term (current) drug therapy; Z79.84 Long term (current) use of oral hypoglycemic drugs
CPT/HCPCS: 99283; 99284

== ENCOUNTER 2019-09-28 19:08 | Emergency (ER) | payer MEDICARE ==
[2019-09-28] MEDS ORDERED: Metoprolol Tartrate 50 MG Tab PO ONE (21:03)
[2019-09-28 21:38] VITALS: BP 152/82; PULSE 61
--- NOTE | 2019-09-29 01:04 | ER ---
DATE SEEN: 09/28/2019 CHIEF COMPLAINT: Confusion. HISTORY OF PRESENT ILLNESS: A 78-year-old male who was brought in by ambulance from [facility] because of confusion. I saw him yesterday with swelling of the legs and he appeared more talkative than usual. According to the nurses, he has had a UTI and was recently placed on several antibiotics. He denies any fever or chills. There is no weakness or speech disturbance. He himself has increased speech and complains of bad dreams. He also has some hallucinations. PAST MEDICAL HISTORY: Schizophrenia, type 2 diabetes, and hypertension. MEDICATIONS AND ALLERGIES: Reviewed. SOCIAL HISTORY: Does not smoke or drink or use any drugs. He lives at the [facility]. REVIEW OF SYSTEMS: Other systems were negative, and he is ambulatory and independent with a walker. PHYSICAL EXAMINATION: VITAL SIGNS: Initial blood pressure 148/78 and repeat was 169/69. He is afebrile. Pulse is 75. HEAD: Atraumatic. EYES: Pupils are equal and reactive to light. NECK: Supple. CHEST: Clear. MENTAL STATUS: He is alert and oriented x2. NEUROLOGIC: No focal findings. DIAGNOSTIC DATA: Labs were normal including a CBC, UA, troponin, and even the CT of the head and chest x-ray were unremarkable. FINAL IMPRESSION: 1. Acute alteration of mental status. 2. Schizophrenia. PLAN: Continue current prescriptions, which include Latuda, BuSpar, and clonazepam p.r.n. I gave him 1 dose of metoprolol to bring down his blood pressure, and I advised the independent living facility to have him see his psychiatrist on Monday to discuss his prescriptions. /[id number] ULYSSES/MODL
--- NOTE | 2019-09-30 12:22 | CR ---
INDICATION: Altered mental status. CHEST, 2 VIEWS: PA and lateral views of the chest, 09/28/19, were compared to 03/30/18 and 09/10/13, and revealed little interval change with no definite acute process. The heart appears normal in size and shape or at the upper limits of normal in size. The aorta is tortuous with calcification in the arch. An active infiltrate or effusion was not identified. Bony structures appear to be grossly intact. IMPRESSION: No acute process. Fairly stable appearance of the chest. A mild degree of ASHD may be present. MTDD
== END 2019-09-28 22:05 | disposition home or self-care (01) ==
LOC: FB.ED 19:08
DX: R41.82 Altered mental status, unspecified (principal); F20.9 Schizophrenia, unspecified; I10 Essential (primary) hypertension; E11.9 Type 2 diabetes mellitus without complications
CPT/HCPCS: 36415; 70450; 71046; 80048; 81001; 84484; 85025; 86140; 99283; 99285; A9270

== ENCOUNTER 2020-12-29 19:09 | Emergency (ER) | payer MEDICARE ==
[2020-12-29] MEDS ORDERED: Sodium Chloride 0.9% 10 ML Syringe FLUSH PRN (19:11)
[2020-12-29] MEDS ORDERED: 50% Dextrose in Water 50 ML Syringe IVPUSH PRN (19:23)
[2020-12-29] MEDS ORDERED: Glucagon,Human Recombinant 1 MG Vial IM PRN (19:23)
[2020-12-29] MEDS ORDERED: Insulin Lispro 100 Unit/ML 3 ML KwikPen SUBCUT STA (19:23)
[2020-12-29] MEDS ORDERED: Morphine 2 MG/ML SYRINGE IVPUSH STA (19:24)
--- NOTE | 2020-12-29 20:00 | EDM.PDOC ---
ED HPI GENERAL MEDICAL PROBLEM - General Stated Complaint: shakiness Time Seen by Provider: 12/29/20 19:15 Source of Information: Reports: Patient, Assisted Records History Limitations: Reports: No Limitations - History of Present Illness INITIAL COMMENTS - FREE TEXT/NARRATIVE: Patient presented to the ED from the [facility] because of increasing confusion and is shaking. He was c/o headache and abdominal pain. There is no N/V/D. No fever, chills, cough or cold symptoms. headache and abd pain Pain Score (Numeric/FACES): 8 - Related Data Allergies Allergy/AdvReac Type Severity Reaction Status Date / Time indomethacin Allergy Confusion Verified 09/28/19 19:22 Home Meds: Home Meds Benztropine Mesylate 0.5 mg PO DAILY 09/06/13 [History] Lurasidone [Latuda] 40 mg PO BEDTIME 09/06/13 [History] metFORMIN [Glucophage] 500 mg PO DAILY 09/06/13 [History] Metoprolol Tartrate [Lopressor] 50 mg PO Q12H #60 tablet 10/23/13 [Rx] Multivitamin [Multiple Vitamins] 1 each PO DAILY 04/10/14 [History] Warfarin Sodium [Jantoven] 5 mg PO DAILY 04/10/14 [History] ClonazePAM [KlonoPIN] 0.5 mg PO DAILY 03/30/18 [History] busPIRone HCl [busPIRone] 30 mg PO DAILY 03/30/18 [History] Carboxymethylcellulose Sodium [Lubricating Plus] 1 drop EYEBOTH ASDIRECTED PRN 09/28/19 [History] Cholecalciferol (Vitamin D3) [Vitamin D3] 1,000 unit PO DAILY 09/28/19 [History] Ranitidine HCl [Ranitidine] 150 mg DAILY 09/28/19 [History] Simvastatin 20 mg PO DAILY 09/28/19 [History] Acetaminophen/oxyCODONE [Percocet 325-5 MG] 1 each PO Q4H PRN #10 tab 12/29/20 [Rx] Doxycycline [Vibra-Tabs] 100 mg PO BID #20 tablet 12/29/20 [Rx] Past Medical History HEENT History: Reports: Glaucoma, Impaired Vision Cardiovascular History: Reports: Afib, High Cholesterol, Hypertension, Other (See Below) Other Cardiovascular History: Hx: Atrial flutter. Gastrointestinal History: Reports: GERD Genitourinary History: Reports: UTI, Recurrent Other Genitourinary History: hernia repair Musculoskeletal History: Reports: Arthritis, Gout, Osteoarthritis Other Musculoskeletal History: Muscle weakness. Neurological History: Reports: Neuropathy, Diabetic Psychiatric History: Reports: Anxiety, Schizophrenia Endocrine/Metabolic History: Reports: Diabetes, Type II, Obesity/BMI 30+ - Infectious Disease History Infectious Disease History: Reports: Chicken Pox, Measles, Mumps - Past Surgical History HEENT Surgical History: Reports: Tonsillectomy GI Surgical History: Reports: Colonoscopy, Hernia Repair/Other Social & Family History - Family History Family Medical History: No Pertinent Family History - Caffeine Use Caffeine Use: Reports: Coffee, Tea ED ROS GENERAL - Review of Systems Review Of Systems: See Below Constitutional: Reports: No Symptoms HEENT: Reports: No Symptoms Respiratory: Reports: No Symptoms Cardiovascular: Reports: No Symptoms Endocrine: Reports: No Symptoms GI/Abdominal: Reports: Abdominal Pain : Reports: No Symptoms Musculoskeletal: Reports: No Symptoms Skin: Reports: No Symptoms Neurological: Reports: Confusion, Headache Psychiatric: Reports: No Symptoms Hematologic/Lymphatic: Reports: No Symptoms ED EXAM, GENERAL - Physical Exam Exam: See Below Exam Limited By: Altered Mental Status General Appearance: Alert, No Apparent Distress Ears: Normal External Exam, Normal Canal Nose: Normal Inspection, Normal Mucosa, No Blood Throat/Mouth: Normal Inspection Head: Atraumatic, Normocephalic Neck: Normal Inspection, Supple, Non-Tender, Full Range of Motion Respiratory/Chest: No Respiratory Distress, Lungs Clear, Normal Breath Sounds Cardiovascular: Normal Peripheral Pulses, Regular Rate, Rhythm, No Edema, No Gallop, No JVD, No Murmur, No Rub GI/Abdominal: Normal Bowel Sounds, Soft, No Organomegaly, Other (diffusely tender) Back Exam: Normal Inspection, Full Range of Motion Extremities: Normal Inspection, Normal Range of Motion, Non-Tender, No Pedal Edema, Normal Capillary Refill Neurological: Alert, Oriented, CN II-XII Intact, Normal Cognition, Normal Gait, Normal Reflexes, No Motor/Sensory Deficits Psychiatric: Normal Affect #1 Interpretation EKG Date: 12/29/20 Time: 19:47 Rhythm: A-Fib Rate (Beats/Min): 74 [place]: Normal P-Wave: Absent QRS: Normal ST-T: Normal QT: Normal Comparison: No Change (AFIB) EKG Interpretation Comments: AFIB Course - Vital Signs Text/Narrative:: Lab/EKG/CXR/abd and Head CT result was reviewed and discussed with patient NS 1 L bolus Morphine 2 mg IV x1 Ativan 1 MG IV x1 Doxycycline 100 mg IV Humalog 10 U SC x1 Last Recorded V/S: Last Vital Signs Temp 36.6 C 12/29/20 19:09 Pulse 80 12/29/20 19:09 Resp 20 12/29/20 19:09 BP 167/85 H 12/29/20 19:09 Pulse Ox 94 L 12/29/20 19:09 - Orders/Labs/Meds Orders: Active Orders 24 hr Category Date Time Status EKG Documentation Completion [RC] ASDIRECTED Care 12/29/20 19:12 Active Abdomen Pelvis w Cont [CT] Stat Exams 12/29/20 19:22 Taken Chest 1V Frontal [CR] Stat Exams 12/29/20 19:11 Taken Head wo Cont [CT] Stat Exams 12/29/20 19:22 Taken CULTURE URINE [RM] Stat Lab 12/29/20 20:00 Received Dextrose 50% in Water Med 12/29/20 19:23 Active 50 ml IVPUSH ASDIRECTED PRN Glucagon,Human Recombinant [GlucaGen] Med 12/29/20 19:23 Active 1 mg IM ASDIRECTED PRN Sodium Chloride 0.9% [Normal Saline] 1,000 ml Med 12/29/20 20:15 Active IV ASDIRECTED Sodium Chloride 0.9% [Saline Flush] Med 12/29/20 19:11 Active 10 ml FLUSH ASDIRECTED PRN Saline Lock Insert [OM.PC] Routine Oth 12/29/20 19:11 Ordered EKG 12 Lead [EK] Routine Ther 12/29/20 19:11 Ordered Medication Orders Dextrose/Water (50% Dextrose In Water 50 Ml Syringe) 50 ml IVPUSH ASDIRECTED PRN PRN Reason: Hypoglycemia Glucagon (Glucagon,Human Recombinant 1 Mg Vial) 1 mg IM ASDIRECTED PRN PRN Reason: Hypoglycemia Sodium Chloride (Normal Saline) 1,000 mls @ 999 mls/hr IV ASDIRECTED SERGIO Last Admin: 12/29/20 20:18 Dose: 999 mls/hr Documented by: BELLE Sodium Chloride (Sodium Chloride 0.9% 10 Ml Syringe) 10 ml FLUSH ASDIRECTED PRN PRN Reason: Keep Vein Open Last Admin: 12/29/20 20:19 Dose: 10 ml Documented by: BELLE Labs: Laboratory Tests 12/29/20 12/29/20 12/29/20 Range/Units 19:20 19:20 19:20 WBC 10.2 H (3.2-10.1) x10-3/uL RBC 4.87 (3.90-5.90) x10(6)uL Hgb 14.2 (12.9-17.7) g/dL Hct 43.0 (38.3-50.1) % MCV 88.2 (80.8-98.7) fL MCH 29.2 (27.0-33.3) pg MCHC 33.1 (28.7-35.3) g/dL RDW 15.2 H (12.4-15.0) % Plt Count 226 (117-477) x10(3)uL MPV 9.0 (6.7-11.0) fL Neut % (Auto) 77.3 H (40.3-71.8) % Lymph % (Auto) 13.8 L (15.8-45.3) % [place] % (Auto) 7.3 (5.5-15.2) % Eos % (Auto) 1.0 (0.1-6.8) % Baso % (Auto) 0.6 (0.3-3.8) % Neut # (Auto) 7.9 H (1.7-6.9) x10-3/uL Lymph # (Auto) 1.4 (0.5-4.5) x10-3/uL [place] # (Auto) 0.7 (0.0-1.2) x10-3/uL Eos # (Auto) 0.1 (0.0-0.6) x10-3/uL Baso # (Auto) 0.1 (0.0-0.3) x10-3/uL PT (9.0-11.1) sec INR (1.00-1.24) Sodium 138 (135-145) mmol/L Potassium 4.3 (3.5-5.3) mmol/L Chloride 99 L D (100-110) mmol/L Carbon Dioxide 25 (21-32) mmol/L BUN 24 H (7-18) mg/dL Creatinine 1.4 H (0.70-1.30) mg/dL Est Cr Clr Drug Dosing TNP Estimated GFR (MDRD) 49 L (>60) BUN/Creatinine Ratio 17.1 (9-20) Glucose 281 H (80-116) mg/dL POC Glucose (74-100) mg/dL Calcium 9.2 (8.6-10.2) mg/dL Total Bilirubin 0.7 (0.1-1.3) mg/dL AST 27 H D (5-25) IU/L ALT 36 D (12-36) U/L Alkaline Phosphatase 63 (56-112) IU/L Troponin I 23.8 (4.0-60.3) pg/mL Total Protein 7.8 (6.0-8.0) g/dL Albumin 3.8 (3.2-4.6) g/dL Globulin 4.0 g/dL Albumin/Globulin Ratio 1.0 Amylase (25-115) U/L Lipase (73-393) U/L Urine Color (YELLOW) Urine Appearance (CLEAR) Urine pH (5.0-6.5) Ur Specific [place] (1.010-1.025) Urine Protein (NEGATIVE) mg/dL Urine Glucose (UA) (NORMAL) mg/dL Urine Ketones (NEGATIVE) mg/dL Urine Occult Blood (NEGATIVE) Urine Nitrite (NEGATIVE) Urine Bilirubin (NEGATIVE) Urine Urobilinogen (NEGATIVE) mg/dL Ur Leukocyte Esterase (NEGATIVE) Urine RBC (0-5) Urine WBC (0-5) Ur Squamous Epith Cells (NS,R,O) Urine Bacteria (NS) 12/29/20 12/29/20 12/29/20 Range/Units 19:20 19:20 19:20 WBC (3.2-10.1) x10-3/uL RBC (3.90-5.90) x10(6)uL Hgb (12.9-17.7) g/dL Hct (38.3-50.1) % MCV (80.8-98.7) fL MCH (27.0-33.3) pg MCHC (28.7-35.3) g/dL RDW (12.4-15.0) % Plt Count (117-477) x10(3)uL MPV (6.7-11.0) fL Neut % (Auto) (40.3-71.8) % Lymph % (Auto) (15.8-45.3) % [place] % (Auto) (5.5-15.2) % Eos % (Auto) (0.1-6.8) % Baso % (Auto) (0.3-3.8) % Neut # (Auto) (1.7-6.9) x10-3/uL Lymph # (Auto) (0.5-4.5) x10-3/uL [place] # (Auto) (0.0-1.2) x10-3/uL Eos # (Auto) (0.0-0.6) x10-3/uL Baso # (Auto) (0.0-0.3) x10-3/uL PT 18.4 H (9.0-11.1) sec INR 1.76 H (1.00-1.24) Sodium (135-145) mmol/L Potassium (3.5-5.3) mmol/L Chloride (100-110) mmol/L Carbon Dioxide (21-32) mmol/L BUN (7-18) mg/dL Creatinine (0.70-1.30) mg/dL Est Cr Clr Drug Dosing Estimated GFR (MDRD) (>60) BUN/Creatinine Ratio (9-20) Glucose (80-116) mg/dL POC Glucose (74-100) mg/dL Calcium (8.6-10.2) mg/dL Total Bilirubin (0.1-1.3) mg/dL AST (5-25) IU/L ALT (12-36) U/L Alkaline Phosphatase (56-112) IU/L Troponin I (4.0-60.3) pg/mL Total Protein (6.0-8.0) g/dL Albumin (3.2-4.6) g/dL Globulin g/dL Albumin/Globulin Ratio Amylase 58 (25-115) U/L Lipase 263 (73-393) U/L Urine Color (YELLOW) Urine Appearance (CLEAR) Urine pH (5.0-6.5) Ur Specific [place] (1.010-1.025) Urine Protein (NEGATIVE) mg/dL Urine Glucose (UA) (NORMAL) mg/dL Urine Ketones (NEGATIVE) mg/dL Urine Occult Blood (NEGATIVE) Urine Nitrite (NEGATIVE) Urine Bilirubin (NEGATIVE) Urine Urobilinogen (NEGATIVE) mg/dL Ur Leukocyte Esterase (NEGATIVE) Urine RBC (0-5) Urine WBC (0-5) Ur Squamous Epith Cells (NS,R,O) Urine Bacteria (NS) 12/29/20 12/29/20 12/29/20 Range/Units 19:20 20:00 21:26 WBC (3.2-10.1) x10-3/uL RBC (3.90-5.90) x10(6)uL Hgb (12.9-17.7) g/dL Hct (38.3-50.1) % MCV (80.8-98.7) fL MCH (27.0-33.3) pg MCHC (28.7-35.3) g/dL RDW (12.4-15.0) % Plt Count (117-477) x10(3)uL MPV (6.7-11.0) fL Neut % (Auto) (40.3-71.8) % Lymph % (Auto) (15.8-45.3) % [place] % (Auto) (5.5-15.2) % Eos % (Auto) (0.1-6.8) % Baso % (Auto) (0.3-3.8) % Neut # (Auto) (1.7-6.9) x10-3/uL Lymph # (Auto) (0.5-4.5) x10-3/uL [place] # (Auto) (0.0-1.2) x10-3/uL Eos # (Auto) (0.0-0.6) x10-3/uL Baso # (Auto) (0.0-0.3) x10-3/uL PT (9.0-11.1) sec INR (1.00-1.24) Sodium (135-145) mmol/L Potassium (3.5-5.3) mmol/L Chloride (100-110) mmol/L Carbon Dioxide (21-32) mmol/L BUN (7-18) mg/dL Creatinine (0.70-1.30) mg/dL Est Cr Clr Drug Dosing Estimated GFR (MDRD) (>60) BUN/Creatinine Ratio (9-20) Glucose (80-116) mg/dL POC Glucose 257 H 128 H (74-100) mg/dL Calcium (8.6-10.2) mg/dL Total Bilirubin (0.1-1.3) mg/dL AST (5-25) IU/L ALT (12-36) U/L Alkaline Phosphatase (56-112) IU/L Troponin I (4.0-60.3) pg/mL Total Protein (6.0-8.0) g/dL Albumin (3.2-4.6) g/dL Globulin g/dL Albumin/Globulin Ratio Amylase (25-115) U/L Lipase (73-393) U/L Urine Color Yellow (YELLOW) Urine Appearance Clear (CLEAR) Urine pH 5.0 (5.0-6.5) Ur Specific [place] 1.020 (1.010-1.025) Urine Protein Trace (NEGATIVE) mg/dL Urine Glucose (UA) 50 H (NORMAL) mg/dL Urine Ketones 50 H (NEGATIVE) mg/dL Urine Occult Blood Negative (NEGATIVE) Urine Nitrite Negative (NEGATIVE) Urine Bilirubin Negative (NEGATIVE) Urine Urobilinogen Normal (NEGATIVE) mg/dL Ur Leukocyte Esterase Moderate H (NEGATIVE) Urine RBC 0-5 (0-5) Urine WBC 5-10 H (0-5) Ur Squamous Epith Cells Few H (NS,R,O) Urine Bacteria Moderate H (NS) Meds: Medications Generic Name Dose Route Start Last Admin Trade Name Freq PRN Reason Stop Dose Admin Dextrose/Water 50 ml 12/29/20 19:23 50% Dextrose In Water 50 Ml Syringe IVPUSH ASDIRECTED PRN Hypoglycemia Glucagon 1 mg 12/29/20 19:23 Glucagon,Human Recombinant 1 Mg Vial IM ASDIRECTED PRN Hypoglycemia Sodium Chloride 1,000 mls @ 999 mls/hr 12/29/20 20:15 12/29/20 20:18 Normal Saline IV 999 mls/hr ASDIRECTED SERGIO Administration Sodium Chloride 10 ml 12/29/20 19:11 12/29/20 20:19 Sodium Chloride 0.9% 10 Ml Syringe FLUSH 10 ml ASDIRECTED PRN Administration Keep Vein Open Discontinued Medications Generic Name Dose Route Start Last Admin Trade Name Freq PRN Reason Stop Dose Admin Doxycycline Hyclate 100 mg/ 100 mls @ 100 mls/hr 12/29/20 21:06 12/29/20 21:28 Sodium Chloride IV 12/29/20 22:05 100 mls/hr NOW STA Administration Insulin Human Lispro 10 unit 12/29/20 19:23 12/29/20 20:11 Insulin Lispro 100 Unit/Ml 3 Ml Kwikpen SUBCUT 12/29/20 19:24 10 units NOW STA Administration Iopamidol 100 ml 12/29/20 20:17 12/29/20 20:40 Iopamidol 755 Mg/Ml 100 Ml Bottle IV 12/29/20 20:18 100 ml . DIRECTED ONE Administration Morphine Sulfate 2 mg 12/29/20 19:24 12/29/20 20:13 Morphine 2 Mg/Ml Syringe IVPUSH 12/29/20 19:25 2 mg NOW STA Administration Departure - Departure Time of Disposition: 22:00 Disposition: Home, Self-Care 01 Condition: Good Clinical Impression: Cholelithiasis, UTI (urinary tract infection), Hyperglycemia - Discharge Information Prescriptions: Acetaminophen/oxyCODONE [Percocet 325-5 MG] 1 each PO Q4H PRN #10 tab PRN Reason: Pain Doxycycline [Vibra-Tabs] 100 mg PO BID #20 tablet Instructions: Cholelithiasis, [id number], Hyperglycemia, [id number], Urinary Tract Infection, Adult Referrals: PCP,None [Primary Care Provider] - Forms: ED Department Discharge Additional Instructions: Please read discharge instructions on UTI and cholelithiasis Increase oral fluids Avoid greasy food Percocet 5/325, 1-2 tablets every 4-6 hours as needed for pain Follow up with your doctor so he can refer you to see a surgeon for your gall stones Doxycycline 100 mg twice daily for 10 for your UTI Sepsis Event Note (ED) - Focused Exam Vital Signs: Vital Signs Temp Pulse Resp BP Pulse Ox 12/29/20 19:09 36.6 C 80 20 167/85 H 94 L - My Orders Last 24 Hours: My Active Orders 12/29/20 19:11 Chest 1V Frontal [CR] Stat Sodium Chloride 0.9% [Saline Flush] 10 ml FLUSH ASDIRECTED PRN Saline Lock Insert [OM.PC] Routine EKG 12 Lead [EK] Routine 12/29/20 19:12 EKG Documentation Completion [RC] ASDIRECTED 12/29/20 19:22 Abdomen Pelvis w Cont [CT] Stat Head wo Cont [CT] Stat 12/29/20 19:23 Dextrose 50% in Water 50 ml IVPUSH ASDIRECTED PRN Glucagon,Human Recombinant [GlucaGen] 1 mg IM ASDIRECTED PRN 12/29/20 20:00 CULTURE URINE [RM] Stat 12/29/20 20:15 Sodium Chloride 0.9% [Normal Saline] 1,000 ml IV ASDIRECTED - Assessment/Plan Last 24 Hours: My Active Orders 12/29/20 19:11 Chest 1V Frontal [CR] Stat Sodium Chloride 0.9% [Saline Flush] 10 ml FLUSH ASDIRECTED PRN Saline Lock Insert [OM.PC] Routine EKG 12 Lead [EK] Routine 12/29/20 19:12 EKG Documentation Completion [RC] ASDIRECTED 12/29/20 19:22 Abdomen Pelvis w Cont [CT] Stat Head wo Cont [CT] Stat 12/29/20 19:23 Dextrose 50% in Water 50 ml IVPUSH ASDIRECTED PRN Glucagon,Human Recombinant [GlucaGen] 1 mg IM ASDIRECTED PRN 12/29/20 20:00 CULTURE URINE [RM] Stat 12/29/20 20:15 Sodium Chloride 0.9% [Normal Saline] 1,000 ml IV ASDIRECTED
[2020-12-29] MEDS ORDERED: Insulin Lispro 100 Unit/ML 3 ML KwikPen SUBCUT ONE (20:09)
[2020-12-29] MEDS ORDERED: Sodium Chloride 0.9% 1,000 ML IV SCH (20:15)
[2020-12-29] MEDS ORDERED: Iopamidol 755 Mg/ML 100 ML Bottle IV ONE (20:17)
[2020-12-29] MEDS ORDERED: Doxycycline 100 MG in Sodium Chloride 0.9% 100 ML IV STA (21:06)
[2020-12-30 05:00] VITALS: BP 144/82; PULSE 77
--- NOTE | 2020-12-30 11:28 | CR ---
INDICATION: Hyperglycemia, weakness. CHEST, ONE VIEW: AP portable upright view of the chest was obtained 12/29/20 and compared with 09/28/19 and 03/30/18. The aorta is tortuous with calcification in the arch. The heart is enlarged. Upper lung field pulmonary vasculature may be slightly prominent raising question of a mild or early CHF. It should be correlated clinically. Exogenous obesity is noted. No consolidating pneumonia or effusion was seen. IMPRESSION: 1. ASHD with cardiomegaly, cannot exclude a mild ot early CHF and minimal interstitial lung edema. 2. Exogenous obesity. MTDD
== END 2020-12-29 23:00 | disposition home or self-care (01) ==
LOC: FB.ED 19:09
DX: K80.20 Calculus of gallbladder without cholecystitis without obstruction (principal); N39.0 Urinary tract infection, site not specified; E11.65 Type 2 diabetes mellitus with hyperglycemia; I48.91 Unspecified atrial fibrillation; E78.00 Pure hypercholesterolemia, unspecified; I10 Essential (primary) hypertension; I48.92 Unspecified atrial flutter; K21.9 Gastro-esophageal reflux disease without esophagitis; E11.40 Type 2 diabetes mellitus with diabetic neuropathy, unspecified; E66.9 Obesity, unspecified; Z68.32 Body mass index [BMI] 32.0-32.9, adult; Z88.1 Allergy status to other antibiotic agents; Z79.84 Long term (current) use of oral hypoglycemic drugs; Z79.01 Long term (current) use of anticoagulants; Z79.899 Other long term (current) drug therapy
CPT/HCPCS: 36410; 36415; 70450; 71045; 74177; 80053; 81001; 82150; 82962; 83690; 84484; 85025; 85610; 87086; 87088; 87186; 93005; 93010; 96365; 96375; 99283; 99285; J1815; J2270; J3490; J7030; Q9967

== ENCOUNTER 2021-07-27 08:21 | Day surgery (SDC) | payer MEDICARE ==
[2021-07-27] MEDS ORDERED: Midazolam 1 MG/ML 2 ML SDV IV ONE (08:22)
[2021-07-27] MEDS ORDERED: fentaNYL 100 MCG/2 ML SDV IV ONE (08:22)
[2021-07-27] MEDS ORDERED: Sodium Chloride 0.9% 10 ML Syringe FLUSH PRN (08:30)
[2021-07-27] MEDS ORDERED: Lactated Ringers 1,000 ML IV SCH (08:30)
[2021-07-27] MEDS ORDERED: acetaZOLAMIDE 500 MG Cap.ER PO ONE (10:30)
--- NOTE | 2021-07-27 11:54 | OR ---
DATE OF OPERATION: 07/27/2021 SURGEON: Pattie Cuevas MD PREOPERATIVE DIAGNOSIS: 1. Visually significant cataract, left eye. 2. Primary open-angle glaucoma, mild stage, left eye. POSTOPERATIVE DIAGNOSIS: 1. Visually significant cataract, left eye. 2. Primary open-angle glaucoma, mild stage, left eye. PROCEDURES PERFORMED: 1. Phacoemulsification with intraocular lens placement, left eye. 2. Insertion of anterior segment aqueous drainage device without extraocular reservoir. Internal approach, into the trabecular meshwork using iStent inject, CPT 0191T and . ASSISTANTS: None. ANESTHESIA: Local with sedation. COMPLICATIONS: None. BLOOD LOSS: None. IMPLANTS: 1. A pre-loaded DCB00 19.5 diopter lens implanted. 2. iStent inject. CDE: 2.96. DESCRIPTION OF PROCEDURE: After risks and benefits were reviewed with the patient, consent was obtained in the preoperative area, and the operative eye was marked with a surgical pen. In the preoperative area, a pledget was used to dilate the pupil consisting of a mixture of phenylephrine 10%, cyclopentolate 2%, moxifloxacin 0.5%, and bupivacaine 0.75%. The patient was taken to the operating room, where a time-out was performed, and the patient was placed under monitored anesthesia care. Topical tetracaine was used for anesthesia. The operative eye was prepped and draped for ophthalmic surgery, and the microscope was brought into position and focused. A paracentesis incision was made, followed by injection of preservative-free 1% lidocaine into the anterior chamber, followed by injection of Viscoat into the anterior chamber. A microkeratome blade was used to make a corneal limbal incision temporally. A cystotome was used to make the beginning of the capsulorrhexis, which was carried around 360 degrees in a curvilinear fashion using Utrata forceps. A Schilling cannula with BSS was used to hydrodissect and hydrodelineate the nucleus. The nucleus was removed in a divide and conquer manner using phacoemulsification. Irrigation and aspiration were used to remove the remaining cortical material. Provisc was used to inflate the capsular bag, and a pre-loaded DCB00 19.5 diopter lens, serial number [id number] was injected into the capsular bag. A Sinskey hook was used to position and center the lens. Attention was turned to the iStent inject portion of the surgery. The microscope was rotated to help visualize the angle and further Provisc was injected into anterior chamber to balloon up the anterior chamber until it was filled with Provisc or Viscoat. The patient was asked to look down. A small amount of Provisc was siphoned to the cornea, and a gonioprism was used to help visualize the angle. The microscope was zoomed in. The iStent inject using serial number [id number] was then brought onto the field and into the anterior chamber and injected into trabecular meshwork and Schlemm canal. This was repeated a second time for the second inject. Next, irrigation and aspiration was used to remove any remaining viscoelastic and cortical material from the anterior chamber. BSS on a cannula was used to inflate the anterior chamber and hydrate the wound. The wound was checked and found to be watertight. 1 mg of Moxifloxacin was injected into the anterior chamber. Drapes were removed and the eye was cleaned. A drop of brimonidine 0.2% and a drop of TobraDex was placed. The eye was shielded, and the patient was taken to the recovery room in stable condition. /[id number] DAMIAN/OTTONIEL
[2021-07-27 16:24] VITALS: BP 159/81; PULSE 47
== END 2021-07-27 11:25 | disposition home or self-care (01) ==
LOC: FB.SDS 08:21
PROVIDERS: ATTEND Ophthalmology
DX: H40.1131 Primary open-angle glaucoma, bilateral, mild stage (principal); H25.813 Combined forms of age-related cataract, bilateral; H35.3131 Nonexudative age-related macular degeneration, bilateral, early dry stage; H52.13 Myopia, bilateral; E11.36 Type 2 diabetes mellitus with diabetic cataract; I48.20 Chronic atrial fibrillation, unspecified; I25.10 Atherosclerotic heart disease of native coronary artery without angina pectoris; E78.5 Hyperlipidemia, unspecified; Z79.01 Long term (current) use of anticoagulants; Z79.899 Other long term (current) drug therapy
CPT/HCPCS: 00142-QZ; 82947; A9270-GY; C1783; J2250; J3010; J7120; V2632

== ENCOUNTER 2021-08-10 08:01 | Day surgery (SDC) | payer MEDICARE ==
[~2021-08-10 08:01] MED LIST: Sodium Chloride 0.9% 10 ML Syringe FLUSH PRN
[2021-08-10] MEDS ORDERED: fentaNYL 100 MCG/2 ML SDV IV ONE (08:02)
[2021-08-10] MEDS ORDERED: Midazolam 1 MG/ML 2 ML SDV IV ONE (08:02)
[2021-08-10] MEDS: Lactated Ringers 1,000 ML IV SCH (09:10)
--- NOTE | 2021-08-10 12:42 | OR ---
DATE OF OPERATION: 08/10/2021 SURGEON: Pattie Cuevas MD PREOPERATIVE DIAGNOSES: 1. Visually significant cataract, right eye. 2. Primary open-angle glaucoma, mild stage, right eye. POSTOPERATIVE DIAGNOSES: 1. Visually significant cataract, right eye. 2. Primary open-angle glaucoma, mild stage, right eye. PROCEDURES PERFORMED: 1. Phacoemulsification with intraocular lens placement, right eye. 2. Insertion of anterior segment aqueous drainage device without extraocular reservoir, internal approach, into the trabecular meshwork using iStent inject, CPT 0191T and 0376T. ASSISTANTS: None. ANESTHESIA: Local with sedation. COMPLICATIONS: None. BLOOD LOSS: None. IMPLANTS: 1. A pre-loaded DCB00 19.5 diopter lens implanted. 2. iStent inject. CDE: 4.05. DESCRIPTION OF PROCEDURE: After risks and benefits were reviewed with the patient, consent was obtained in the preoperative area, and the operative eye was marked with a surgical pen. In the preoperative area, a pledget was used to dilate the pupil consisting of a mixture of phenylephrine 10%, cyclopentolate 2%, moxifloxacin 0.5%, and bupivacaine 0.75%. The patient was taken to the operating room, where a time-out was performed, and the patient was placed under monitored anesthesia care. Topical tetracaine was used for anesthesia. The operative eye was prepped and draped for ophthalmic surgery, and the microscope was brought into position and focused. A paracentesis incision was made, followed by injection of preservative-free 1% lidocaine into the anterior chamber, followed by injection of Viscoat into the anterior chamber. A microkeratome blade was used to make a corneal limbal incision temporally. A cystotome was used to make the beginning of the capsulorrhexis, which was carried around 360 degrees in a curvilinear fashion using Utrata forceps. A Schilling cannula with BSS was used to hydrodissect and hydrodelineate the nucleus. The nucleus was removed in a divide and conquer manner using phacoemulsification. Irrigation and aspiration were used to remove the remaining cortical material. Provisc was used to inflate the capsular bag, and a pre-loaded DCB00 19.5 diopter lens, serial number [id number] was injected into the capsular bag. A Sinskey hook was used to position and center the lens. Attention was turned to the iStent inject portion of the surgery. The microscope was rotated to help visualize the angle and further Provisc was injected into anterior chamber to balloon up the anterior chamber until it was filled with Provisc or Viscoat. The patient was asked to look down. A small amount of Provisc was siphoned on to the cornea, and a gonioprism was used to help visualize the angle. The microscope was zoomed in. The iStent inject using serial number [id number] was then brought onto the field and into the anterior chamber. Protective cover was retracted and iStent inject was then injected into trabecular meshwork and Schlemm canal. This was repeated a second time for the second inject. Next, irrigation and aspiration was used to remove any remaining viscoelastic and cortical material from the anterior chamber. BSS on a cannula was used to inflate the anterior chamber and hydrate the wound. The wound was checked and found to be watertight. 1 mg of Moxifloxacin was injected into the anterior chamber. Drapes were removed and the eye was cleaned. A drop of brimonidine 0.2% and a drop of TobraDex was placed. The eye was shielded, and the patient was taken to the recovery room in stable condition. /[id number] DAMIAN/OTTONIEL
[2021-08-10 14:10] VITALS: BP 144/79; PULSE 51
== END 2021-08-10 10:40 | disposition home or self-care (01) ==
LOC: FB.SDS 08:01
PROVIDERS: ATTEND Ophthalmology
DX: H40.1111 Primary open-angle glaucoma, right eye, mild stage (principal); E11.36 Type 2 diabetes mellitus with diabetic cataract; H25.813 Combined forms of age-related cataract, bilateral; H40.1131 Primary open-angle glaucoma, bilateral, mild stage; H35.3131 Nonexudative age-related macular degeneration, bilateral, early dry stage; H52.13 Myopia, bilateral; I48.91 Unspecified atrial fibrillation; I10 Essential (primary) hypertension; E78.5 Hyperlipidemia, unspecified; I25.10 Atherosclerotic heart disease of native coronary artery without angina pectoris; K21.9 Gastro-esophageal reflux disease without esophagitis; Z79.01 Long term (current) use of anticoagulants; Z79.899 Other long term (current) drug therapy
CPT/HCPCS: 00142-QZ; 82947; C1783; J2250; J3010; J7120; V2632

== ENCOUNTER 2022-01-16 12:25 | Emergency (ER) | payer MEDICARE ==
[2022-01-16 16:54] VITALS: BP 126/66; PULSE 96
== END 2022-01-16 14:30 | disposition home or self-care (01) ==
LOC: FB.ED 12:25
DX: S09.90XA Unspecified injury of head, initial encounter (principal); I48.91 Unspecified atrial fibrillation; I25.10 Atherosclerotic heart disease of native coronary artery without angina pectoris; E78.00 Pure hypercholesterolemia, unspecified; I10 Essential (primary) hypertension; E11.9 Type 2 diabetes mellitus without complications; M10.9 Gout, unspecified; M19.90 Unspecified osteoarthritis, unspecified site; E66.9 Obesity, unspecified; Z68.30 Body mass index [BMI] 30.0-30.9, adult; Z79.899 Other long term (current) drug therapy; Z79.84 Long term (current) use of oral hypoglycemic drugs; Z88.8 Allergy status to other drugs, medicaments and biological substances; Z79.01 Long term (current) use of anticoagulants; W22.09XA Striking against other stationary object, initial encounter
CPT/HCPCS: 70450; 99281; 99283-25

== ENCOUNTER 2022-02-02 06:49 | Day surgery (SDC) | payer MEDICARE ==
[~2022-02-02 06:49] MED LIST changes: +Lactated Ringers 1,000 ML IV SCH
[2022-02-02] MEDS ORDERED: Propofol 200 MG/20 ML SDV IV ONE (06:50)
[2022-02-02 09:52] VITALS: BP 152/54; PULSE 53
== END 2022-02-02 10:24 | disposition home or self-care (01) ==
LOC: FB.SDS 06:49
PROVIDERS: ATTEND Surgery
DX: K57.30 Diverticulosis of large intestine without perforation or abscess without bleeding (principal); D68.8 Other specified coagulation defects; K62.89 Other specified diseases of anus and rectum; K59.09 Other constipation; E11.9 Type 2 diabetes mellitus without complications; I48.20 Chronic atrial fibrillation, unspecified; F41.9 Anxiety disorder, unspecified; F32.A Depression, unspecified; I10 Essential (primary) hypertension; E78.5 Hyperlipidemia, unspecified; E66.01 Morbid (severe) obesity due to excess calories; Z79.01 Long term (current) use of anticoagulants; Z79.84 Long term (current) use of oral hypoglycemic drugs; Z79.899 Other long term (current) drug therapy; Z86.010 Personal history of colon polyps; Z80.0 Family history of malignant neoplasm of digestive organs; Z68.32 Body mass index [BMI] 32.0-32.9, adult
CPT/HCPCS: 00811-QZ; 36415; 85610; J2704; J7120

== ENCOUNTER 2022-07-29 21:02 | Emergency (ER) | payer MEDICARE ==
[2022-07-29] MEDS ORDERED: Sodium Chloride 0.9% 10 ML Syringe FLUSH PRN (21:35)
[2022-07-29] MEDS ORDERED: Morphine 4 MG/ML VIAL IVPUSH ONE (21:35)
[2022-07-29] MEDS ORDERED: Sodium Chloride 0.9% 1,000 ML IV SCH (21:45)
[2022-07-29 22:19] LABS: ESTIMATED GFR 67 mL/min (>60)
[2022-07-29] MEDS ORDERED: Iopamidol 755 MG/ML 150 ML Bottle IV ONE (23:55)
[2022-07-30 03:38] VITALS: BP 148/89; PULSE 69
== END 2022-07-30 01:35 | disposition home or self-care (01) ==
LOC: FB.ED 21:02
DX: K80.20 Calculus of gallbladder without cholecystitis without obstruction (principal); K59.00 Constipation, unspecified; I48.91 Unspecified atrial fibrillation; I25.10 Atherosclerotic heart disease of native coronary artery without angina pectoris; I10 Essential (primary) hypertension; E78.00 Pure hypercholesterolemia, unspecified; K21.9 Gastro-esophageal reflux disease without esophagitis; M10.9 Gout, unspecified; E11.40 Type 2 diabetes mellitus with diabetic neuropathy, unspecified; E66.9 Obesity, unspecified; Z79.01 Long term (current) use of anticoagulants; Z79.899 Other long term (current) drug therapy; Z88.6 Allergy status to analgesic agent; Z79.84 Long term (current) use of oral hypoglycemic drugs
CPT/HCPCS: 36415; 74177; 80053; 82150; 83690; 85025; 96361; 96374; 99284-25; J2270; J3490; J7030; Q9967

== ENCOUNTER 2023-02-11 07:36 | Emergency (ER) | payer MEDICARE ==
[2023-02-11] MEDS ORDERED: Sodium Chloride 0.9% 10 ML Syringe FLUSH PRN (08:01)
[2023-02-11 08:19] LABS: HEMATOCRIT 41.9 % (38.3-50.1); HEMOGLOBIN 14.2 g/dL (12.9-17.7); MEAN CORPUSCULAR HEMOGLOBIN 29.3 pg (27.0-33.3); MEAN CORPUSCULAR HGB CONC 33.8 g/dL (28.7-35.3); MEAN CORPUSCULAR VOLUME 86.6 fL (80.8-98.7); RED BLOOD CELL COUNT 4.84 x10(6)uL (3.90-5.90); RED CELL DISTRIBUTION WIDTH 15.2 % (12.4-15.0); WHITE BLOOD CELL COUNT,WBC 6.3 x10-3/uL (3.2-10.1)
[2023-02-11 08:22] LABS: BLOOD UREA NITROGEN,BUN 19 mg/dL (7-18); BUN/CREATININE RATIO 15.8 (9-20); CALCIUM 9.4 mg/dL (8.6-10.2); CARBON DIOXIDE,CO2 28 mmol/L (21-32); CHLORIDE,CL 102 mmol/L (100-110); CREATININE 1.2 mg/dL (0.70-1.30); ESTIMATED GFR 60 mL/min (>60); GLUCOSE RANDOM 152 mg/dL (80-116); POTASSIUM,K 4.3 mmol/L (3.5-5.3); SODIUM,NA 139 mmol/L (135-145)
[2023-02-11 08:23] LABS: LIPASE 44 U/L (16-77)
[2023-02-11 08:25] LABS: C-REACTIVE PROTEIN < 0.2 mg/dL (0.5-0.9); INR 2.44 (1.00-1.24); PROTHROMBIN TIME 24.5 sec (9.0-11.1)
[2023-02-11 08:28] LABS: ALANINE AMINOTRANSFERASE,ALT 23 U/L (12-36); ALBUMIN 3.8 g/dL (3.2-4.6); ALKALINE PHOSPHATASE 59 IU/L (56-112); ASPARTATE AMNIOTRANSFERASE,AST 21 IU/L (5-25); BILIRUBIN TOTAL 0.6 mg/dL (0.1-1.3); PROTEIN TOTAL,TP 7.8 g/dL (6.0-8.0)
[2023-02-11 08:40] VITALS: PULSE 56
[2023-02-11] MEDS: Sodium Chloride 0.9% 1,000 ML IV SCH (08:40)
[2023-02-11 10:24] LABS: APPEARANCE,URINE CLEAR (CLEAR); BACTERIA,URINE FEW (NS); BILIRUBIN,URINE NEGATIVE (NEGATIVE); COLOR,URINE YELLOW (YELLOW); GLUCOSE,URINE NORMAL (NORMAL); KETONES,URINE NEGATIVE (NEGATIVE); LEUKOCYTE ESTERASE,URINE NEGATIVE (NEGATIVE); NITRITE,URINE NEGATIVE (NEGATIVE); OCCULT BLOOD,URINE NEGATIVE (NEGATIVE); PROTEIN,URINE NEGATIVE (NEGATIVE); RBC,URINE 0-5 (0-5); SQUAMOUS EPITHELIAL CELLS,UR FEW (NS,R,O); UROBILINOGEN,URINE NORMAL (NEGATIVE); WBC,URINE 0-5 (0-5)
[2023-02-11 11:34] VITALS: BP 146/59
== END 2023-02-11 11:26 | disposition other institution (70) ==
LOC: FB.ED 07:36
DX: R10.12 Left upper quadrant pain (principal); R10.11 Right upper quadrant pain; I48.91 Unspecified atrial fibrillation; I25.10 Atherosclerotic heart disease of native coronary artery without angina pectoris; E78.00 Pure hypercholesterolemia, unspecified; I10 Essential (primary) hypertension; E11.40 Type 2 diabetes mellitus with diabetic neuropathy, unspecified; E66.9 Obesity, unspecified; Z68.30 Body mass index [BMI] 30.0-30.9, adult; Z88.1 Allergy status to other antibiotic agents; Z79.01 Long term (current) use of anticoagulants; Z79.899 Other long term (current) drug therapy
CPT/HCPCS: 36415; 80053; 81001; 83605; 83690; 85027; 85610; 86140; 96360; 96361; 99284; J7030

== ENCOUNTER 2023-05-17 17:36 | Emergency (ER) | payer MEDICARE ==
[2023-05-17 17:49] VITALS: PULSE 61
[2023-05-17 18:26] LABS: INR 2.59 (1.00-1.24)
[2023-05-17 19:52] VITALS: BP 132/69
== END 2023-05-17 20:32 | disposition home or self-care (01) ==
LOC: FB.ED 17:36
DX: S80.01XA Contusion of right knee, initial encounter (principal); S80.02XA Contusion of left knee, initial encounter; S30.0XXA Contusion of lower back and pelvis, initial encounter; I25.10 Atherosclerotic heart disease of native coronary artery without angina pectoris; E78.00 Pure hypercholesterolemia, unspecified; I10 Essential (primary) hypertension; I48.91 Unspecified atrial fibrillation; K21.9 Gastro-esophageal reflux disease without esophagitis; E11.40 Type 2 diabetes mellitus with diabetic neuropathy, unspecified; E66.9 Obesity, unspecified; Z68.30 Body mass index [BMI] 30.0-30.9, adult; Z91.041 Radiographic dye allergy status; Z79.84 Long term (current) use of oral hypoglycemic drugs; Z79.01 Long term (current) use of anticoagulants; Z79.899 Other long term (current) drug therapy; W18.30XA Fall on same level, unspecified, initial encounter
CPT/HCPCS: 36415; 70450; 72131; 73562-50; 85610; 99284

== ENCOUNTER 2024-09-16 12:24 | Emergency (ER) | payer MEDICARE ==
[2024-09-16 13:04] LABS: BASOPHILS PERCENT AUTO 0.3 % (0.3-3.8); EOSINOPHILS ABSOLUTE AUTO 0.3 x10-3/uL (0.0-0.6); EOSINOPHILS PERCENT AUTO 3.4 % (0.1-6.8); HEMATOCRIT 42.9 % (38.3-50.1); HEMOGLOBIN 14.3 g/dL (12.9-17.7); LYMPHOCYTES ABSOLUTE AUTO 1.6 x10-3/uL (0.5-4.5); LYMPHOCYTES PERCENT AUTO 20.5 % (15.8-45.3); MEAN CORPUSCULAR HEMOGLOBIN 29.3 pg (27.0-33.3); MEAN CORPUSCULAR HGB CONC 33.3 g/dL (28.7-35.3); MEAN CORPUSCULAR VOLUME 87.9 fL (80.8-98.7); MEAN PLATELET VOLUME 8.7 fL (6.7-11.0); MONOCYTES ABSOLUTE AUTO 0.7 x10-3/uL (0.0-1.2); MONOCYTES PERCENT AUTO 8.6 % (5.5-15.2); NEUTROPHILS ABSOLUTE AUTO 5.1 x10-3/uL (1.7-6.9); NEUTROPHILS PERCENT AUTO 67.2 % (40.3-71.8); PLATELET COUNT,PLT 220 x10(3)uL (117-477); RED BLOOD CELL COUNT 4.87 x10(6)uL (3.90-5.90); RED CELL DISTRIBUTION WIDTH 14.3 % (12.4-15.0); WHITE BLOOD CELL COUNT,WBC 7.6 x10-3/uL (3.2-10.1)
[2024-09-16 13:10] LABS: BLOOD UREA NITROGEN,BUN 20 mg/dL (7-18); BUN/CREATININE RATIO 16.7 (9-20); CALCIUM 9.1 mg/dL (8.6-10.2); CARBON DIOXIDE,CO2 29 mmol/L (21-32); CHLORIDE,CL 105 mmol/L (100-110); CREATININE 1.2 mg/dL (0.70-1.30); ESTIMATED GFR 60 mL/min (>60); GLUCOSE RANDOM 152 mg/dL (80-116); POTASSIUM,K 4.3 mmol/L (3.5-5.3); SODIUM,NA 142 mmol/L (135-145)
[2024-09-16 13:16] LABS: ALANINE AMINOTRANSFERASE,ALT 30 U/L (12-36); ALBUMIN 3.4 g/dL (3.2-4.6); ALKALINE PHOSPHATASE 61 IU/L (56-112); ASPARTATE AMNIOTRANSFERASE,AST 21 IU/L (5-25); BILIRUBIN TOTAL 0.5 mg/dL (0.1-1.3); PROTEIN TOTAL,TP 6.9 g/dL (6.0-8.0)
[2024-09-16 13:19] LABS: LIPASE 32 U/L (16-77); TROPONIN I 5.2 pg/mL (4.0-60.3)
[2024-09-16 13:25] LABS: C-REACTIVE PROTEIN < 0.50 mg/dL (<0.50)
[2024-09-16] MEDS: Aluminum Hydroxide/Magnesium Hydroxide Susp 30 ML Cup PO ONE (13:39)
[2024-09-16] MEDS: Pantoprazole 40 MG Tab.CR PO ONE (13:56)
[2024-09-16 14:45] VITALS: BP 138/67; PULSE 55
== END 2024-09-16 15:53 | disposition home or self-care (01) ==
LOC: FB.ED 12:24
DX: K21.9 Gastro-esophageal reflux disease without esophagitis (principal); I25.10 Atherosclerotic heart disease of native coronary artery without angina pectoris; I48.91 Unspecified atrial fibrillation; I10 Essential (primary) hypertension; E78.00 Pure hypercholesterolemia, unspecified; E11.9 Type 2 diabetes mellitus without complications; E66.9 Obesity, unspecified; Z90.89 Acquired absence of other organs; Z88.8 Allergy status to other drugs, medicaments and biological substances; Z79.84 Long term (current) use of oral hypoglycemic drugs; Z79.01 Long term (current) use of anticoagulants; Z79.899 Other long term (current) drug therapy
CPT/HCPCS: 36415; 80053; 83690; 84484; 85025; 86140; 93005; 99285; A9270

== ENCOUNTER 2025-01-17 14:05 | Emergency (ER) | payer MEDICARE ==
[2025-01-17 14:13] VITALS: BP 168/51; PULSE 64
[2025-01-17 14:45] LABS: INR 2.8 (1.00-1.24); PROTHROMBIN TIME 26.7 sec (9.0-11.1)
== END 2025-01-17 17:05 ==
LOC: FB.ED 14:05
DX: S00.03XA Contusion of scalp, initial encounter (principal); S50.02XA Contusion of left elbow, initial encounter; S00.83XA Contusion of other part of head, initial encounter; I48.91 Unspecified atrial fibrillation; E78.00 Pure hypercholesterolemia, unspecified; I10 Essential (primary) hypertension; E11.40 Type 2 diabetes mellitus with diabetic neuropathy, unspecified; Z79.01 Long term (current) use of anticoagulants; Z88.8 Allergy status to other drugs, medicaments and biological substances; Z79.899 Other long term (current) drug therapy; Z79.84 Long term (current) use of oral hypoglycemic drugs; V86.55XA Driver of 3- or 4- wheeled all-terrain vehicle (ATV) injured in nontraffic accident, initial encounter; Y93.89 Activity, other specified
CPT/HCPCS: 36415; 70450; 70486; 72125; 73080-LT; 85610; 99285

== ENCOUNTER 2025-01-23 11:44 | Inpatient (IN) | payer MEDICARE ==
[2025-01-23] MEDS ORDERED: Magnesium Hydroxide 400 MG/5 ML Susp 30 ML Cup PO PRN (12:21)
[2025-01-23] MEDS ORDERED: Loperamide 2 MG Cap PO PRN (12:21)
[2025-01-23] MEDS: Carboxymethylcellulose Sodium 0.5% Ophth Soln 15 ML Bottle EYEBOTH SCH (16:14)
[2025-01-23] MEDS: Diclofenac Sodium 1% Gel 100 GM Tube TOP SCH (16:16)
[2025-01-23] MEDS: Warfarin 5 MG Tab PO ONE (16:21)
[2025-01-23] MEDS: LURASIDONE HCL 80 MG PO SCH (18:04)
[2025-01-23] MEDS: LURASIDONE HCL 20 MG PO SCH (18:04)
[2025-01-23] MEDS: busPIRone 15 MG Tab PO SCH (20:49)
[2025-01-23] MEDS: atorvaSTATin 10 MG Tab PO SCH (20:50)
[2025-01-23] MEDS: Metoprolol Tartrate 50 MG Tab PO SCH (20:52)
[2025-01-23] MEDS: Triamcinolone Acetonide 0.1% Oint 15 GM Tube TOP SCH (20:54)
[2025-01-23] MEDS: Latanoprost 0.005% Ophth Soln 2.5 ML Bottle EYEBOTH SCH (20:57)
[2025-01-23] MEDS ORDERED: Triamcinolone Acetonide 0.1% Crm 15 GM Tube TOP SCH (21:00)
[2025-01-23] MEDS: Famotidine 20 MG Tab PO SCH (21:00)
[2025-01-23] MEDS: Mirtazapine 15 MG Tab PO SCH (21:12)
[2025-01-23] MEDS: Benztropine 0.5 MG Tab PO SCH (21:25)
[2025-01-24 06:30] LABS: INR 2.54 (1.00-1.24); PROTHROMBIN TIME 24.4 sec (9.0-11.1)
[2025-01-24] MEDS: busPIRone 15 MG Tab PO SCH (08:43)
[2025-01-24] MEDS: Cholecalciferol (Vitamin D3) 25 MCG Tab PO SCH (08:45)
[2025-01-24] MEDS: metFORMIN 500 MG Tab PO SCH (08:45)
[2025-01-24] MEDS: Polyethylene Glycol 3350 Powder 17 GM Packet PO SCH (08:46)
[2025-01-24] MEDS ORDERED: Warfarin 5 MG Tab PO SCH (09:00)
[2025-01-24] MEDS: Warfarin 2.5 MG Tab PO ONE (16:48)
[2025-01-24] MEDS: Lurasidone 40 MG Tab PO SCH (17:06)
[2025-01-24] MEDS: Acetaminophen 650 MG Tab.ER PO PRN (19:00)
[2025-01-25 07:19] LABS: INR 2.66 (1.00-1.24); PROTHROMBIN TIME 25.5 sec (9.0-11.1)
[2025-01-25] MEDS: Warfarin 2.5 MG Tab PO ONE (17:04)
[2025-01-26 07:29] LABS: INR 2.37 (1.00-1.24)
[2025-01-26] MEDS: Ondansetron 4 MG Tab.DIS PO PRN (12:14)
[2025-01-26] MEDS: Warfarin 2.5 MG Tab PO ONE (17:00)
[2025-01-26] MEDS: Metoprolol Tartrate 25 MG Tab PO SCH (20:02)
[2025-01-27 06:42] LABS: INR 1.93 (1.00-1.24)
[2025-01-27 12:23] LABS: BILIRUBIN,URINE NEGATIVE (NEGATIVE); GLUCOSE,URINE NORMAL (NORMAL); KETONES,URINE NEGATIVE (NEGATIVE); LEUKOCYTE ESTERASE,URINE MODERATE (NEGATIVE); NITRITE,URINE NEGATIVE (NEGATIVE); OCCULT BLOOD,URINE NEGATIVE (NEGATIVE); PROTEIN,URINE NEGATIVE (NEGATIVE); UROBILINOGEN,URINE NORMAL (NEGATIVE)
[2025-01-27 12:25] LABS: APPEARANCE,URINE CLEAR (CLEAR); BACTERIA,URINE FEW (NS); COLOR,URINE YELLOW (YELLOW); RBC,URINE 0-5 (0-5); SQUAMOUS EPITHELIAL CELLS,UR OCCASIONAL (NS,R,O)
[2025-01-27] MEDS: cefTRIAXone 1 GM Vial IM ONE (15:03)
[2025-01-27] MEDS: Warfarin 5 MG Tab PO ONE (15:44)
[2025-01-28 07:32] LABS: INR 2.09 (1.00-1.24); PROTHROMBIN TIME 20.5 sec (9.0-11.1)
[2025-01-28] MEDS: Amoxicillin/Clavulanate K 875-125 MG Tab PO SCH (09:43)
[2025-01-28] MEDS: Warfarin 2.5 MG Tab PO ONE (16:20)
[2025-01-29 07:13] LABS: INR 1.92 (1.00-1.24); PROTHROMBIN TIME 18.9 sec (9.0-11.1)
[2025-01-29] MEDS: Warfarin 5 MG Tab PO SCH (17:27)
[2025-01-29] MEDS: Lurasidone 40 MG Tab PO SCH (17:28)
[2025-01-29] MEDS: Mirtazapine 15 MG Tab PO SCH (20:46)
[2025-01-30] MEDS: Warfarin 2.5 MG Tab PO SCH (16:44)
[2025-01-31 06:39] LABS: INR 1.78 (1.00-1.24); PROTHROMBIN TIME 17.7 sec (9.0-11.1)
[2025-01-31] MEDS: Warfarin 5 MG Tab PO SCH (17:30)
[2025-02-02 06:44] LABS: INR 1.91 (1.00-1.24); PROTHROMBIN TIME 18.8 sec (9.0-11.1)
[2025-02-02] MEDS: Warfarin 5 MG Tab PO ONE (16:21)
[2025-02-03 07:06] LABS: INR 2.29 (1.00-1.24); PROTHROMBIN TIME 22.3 sec (9.0-11.1)
[2025-02-03] MEDS: Warfarin 5 MG Tab PO ONE (16:15)
[2025-02-04 06:43] LABS: INR 2.69 (1.00-1.24); PROTHROMBIN TIME 25.8 sec (9.0-11.1)
[2025-02-04] MEDS: Warfarin 2.5 MG Tab PO ONE (16:11)
[2025-02-05] MEDS: Triamcinolone Acetonide 0.1% Oint 15 GM Tube TOP PRN (08:42)
[2025-02-05 08:44] VITALS: BP 124/71; PULSE 54
[2025-02-05] MEDS ORDERED: Warfarin 5 MG Tab PO ONE (16:00)
[2025-02-05] MEDS ORDERED: Warfarin 5 MG Tab PO SCH (16:00)
[2025-02-07] MEDS ORDERED: Warfarin 2.5 MG Tab PO SCH (16:00)
== END 2025-02-05 12:45 | disposition home or self-care (01) | DRG 948 ==
LOC: FB.MS 11:44
PROVIDERS: ADMIT Family Medicine; ATTEND Family Medicine
DX: R53.81 Other malaise (principal); I48.3 Typical atrial flutter; R45.851 Suicidal ideations; R29.6 Repeated falls; F20.9 Schizophrenia, unspecified; E11.9 Type 2 diabetes mellitus without complications; I48.91 Unspecified atrial fibrillation; I25.10 Atherosclerotic heart disease of native coronary artery without angina pectoris; E78.00 Pure hypercholesterolemia, unspecified; I10 Essential (primary) hypertension; H54.7 Unspecified visual loss; K21.9 Gastro-esophageal reflux disease without esophagitis; M19.90 Unspecified osteoarthritis, unspecified site; M10.9 Gout, unspecified; E11.40 Type 2 diabetes mellitus with diabetic neuropathy, unspecified; F41.9 Anxiety disorder, unspecified; F32.A Depression, unspecified; E66.9 Obesity, unspecified; I48.0 Paroxysmal atrial fibrillation; S09.90XA Unspecified injury of head, initial encounter; W19.XXXA Unspecified fall, initial encounter; S50.312D Abrasion of left elbow, subsequent encounter; Z79.01 Long term (current) use of anticoagulants; Z88.8 Allergy status to other drugs, medicaments and biological substances; Z79.84 Long term (current) use of oral hypoglycemic drugs; Z79.899 Other long term (current) drug therapy; Z86.0100 Personal history of colon polyps, unspecified; Z68.28 Body mass index [BMI] 28.0-28.9, adult; Z98.49 Cataract extraction status, unspecified eye; Z98.890 Other specified postprocedural states; Z90.89 Acquired absence of other organs
CPT/HCPCS: 36415; 70450; 81001; 82947; 85610; 87086; 94150; 97110-GP; 97112-GP; 97161-GP; 97165-GO; 97530-GP; 97535-GO; 99305; 99307; 99308; 99309; 99316; A9270-GY; J0696; Q0162

== ENCOUNTER 2025-02-08 14:58 | Emergency (ER) | payer MEDICARE ==
[2025-02-08 15:20] LABS: BASOPHILS ABSOLUTE AUTO 0.1 x10-3/uL (0.0-0.3); BASOPHILS PERCENT AUTO 1.2 % (0.3-3.8); EOSINOPHILS ABSOLUTE AUTO 0.4 x10-3/uL (0.0-0.6); EOSINOPHILS PERCENT AUTO 5.4 % (0.1-6.8); HEMATOCRIT 42.1 % (38.3-50.1); HEMOGLOBIN 14.4 g/dL (12.9-17.7); LYMPHOCYTES ABSOLUTE AUTO 2.2 x10-3/uL (0.5-4.5); LYMPHOCYTES PERCENT AUTO 33.9 % (15.8-45.3); MEAN CORPUSCULAR HEMOGLOBIN 29.4 pg (27.0-33.3); MEAN CORPUSCULAR HGB CONC 34.2 g/dL (28.7-35.3); MEAN CORPUSCULAR VOLUME 86.2 fL (80.8-98.7); MEAN PLATELET VOLUME 9.3 fL (6.7-11.0); MONOCYTES ABSOLUTE AUTO 0.6 x10-3/uL (0.0-1.2); MONOCYTES PERCENT AUTO 9.4 % (5.5-15.2); NEUTROPHILS ABSOLUTE AUTO 3.3 x10-3/uL (1.7-6.9); NEUTROPHILS PERCENT AUTO 50.1 % (40.3-71.8); PLATELET COUNT,PLT 215 x10(3)uL (117-477); RED BLOOD CELL COUNT 4.89 x10(6)uL (3.90-5.90); RED CELL DISTRIBUTION WIDTH 14.7 % (12.4-15.0); WHITE BLOOD CELL COUNT,WBC 6.6 x10-3/uL (3.2-10.1)
[2025-02-08 15:28] LABS: INR 2.21 (1.00-1.24); PROTHROMBIN TIME 21.5 sec (9.0-11.1)
[2025-02-08 15:34] LABS: ALANINE AMINOTRANSFERASE,ALT 33 U/L (12-36); ALBUMIN 3.6 g/dL (3.2-4.6); ALKALINE PHOSPHATASE 69 IU/L (56-112); ASPARTATE AMNIOTRANSFERASE,AST 22 IU/L (5-25); BILIRUBIN TOTAL 0.3 mg/dL (0.1-1.3); BLOOD UREA NITROGEN,BUN 18 mg/dL (7-18); BUN/CREATININE RATIO 13.8 (9-20); CALCIUM 9.1 mg/dL (8.6-10.2); CARBON DIOXIDE,CO2 30 mmol/L (21-32); CHLORIDE,CL 105 mmol/L (100-110); CREATININE 1.3 mg/dL (0.70-1.30); ESTIMATED GFR 54 mL/min (>60); GLUCOSE RANDOM 129 mg/dL (80-116); POTASSIUM,K 4.6 mmol/L (3.5-5.3); PROTEIN TOTAL,TP 7.3 g/dL (6.0-8.0); SODIUM,NA 139 mmol/L (135-145)
[2025-02-08 19:20] VITALS: BP 113/61; PULSE 59
== END 2025-02-08 18:10 | disposition home or self-care (01) ==
LOC: FB.ED 14:58
DX: S09.90XA Unspecified injury of head, initial encounter (principal); F20.9 Schizophrenia, unspecified; I25.10 Atherosclerotic heart disease of native coronary artery without angina pectoris; I10 Essential (primary) hypertension; I48.91 Unspecified atrial fibrillation; E78.00 Pure hypercholesterolemia, unspecified; E11.40 Type 2 diabetes mellitus with diabetic neuropathy, unspecified; E66.9 Obesity, unspecified; Z79.84 Long term (current) use of oral hypoglycemic drugs; Z79.899 Other long term (current) drug therapy; Z79.01 Long term (current) use of anticoagulants; Z88.8 Allergy status to other drugs, medicaments and biological substances; Z68.27 Body mass index [BMI] 27.0-27.9, adult; W18.30XA Fall on same level, unspecified, initial encounter; Y92.019 Unspecified place in single-family (private) house as the place of occurrence of the external cause
CPT/HCPCS: 36415; 70450; 72125; 73562-RT; 80053; 85025; 85610; 99284

== ENCOUNTER 2025-02-18 12:15 | Inpatient (IN) | payer MEDICARE ==
[2025-02-18] MEDS ORDERED: Melatonin 3 MG Tab PO PRN (13:31)
[2025-02-18] MEDS ORDERED: Loperamide 2 MG Cap PO PRN (13:33)
[2025-02-18] MEDS ORDERED: Magnesium Hydroxide 400 MG/5 ML Susp 30 ML Cup PO PRN (13:33)
[2025-02-18] MEDS: Carboxymethylcellulose Sodium 0.5% Ophth Soln 15 ML Bottle EYEBOTH SCH (17:55)
[2025-02-18] MEDS: Lurasidone 40 MG Tab PO SCH (17:56)
[2025-02-18] MEDS ORDERED: LURASIDONE HCL 20 MG PO SCH (18:00)
[2025-02-18] MEDS: busPIRone 15 MG Tab PO SCH (20:27)
[2025-02-18] MEDS: Benztropine 0.5 MG Tab PO SCH (20:27)
[2025-02-18] MEDS: Famotidine 20 MG Tab PO SCH (20:28)
[2025-02-18] MEDS: atorvaSTATin 10 MG Tab PO SCH (20:28)
[2025-02-18] MEDS: Metoprolol Tartrate 25 MG Tab PO SCH (20:28)
[2025-02-18] MEDS: Latanoprost 0.005% Ophth Soln 2.5 ML Bottle EYEBOTH SCH (20:29)
[2025-02-18] MEDS: Mirtazapine 15 MG Tab PO SCH (20:29)
[2025-02-19 06:56] LABS: INR 2.54 (1.00-1.24); PROTHROMBIN TIME 24.4 sec (9.0-11.1)
[2025-02-19] MEDS: Aspirin 81 MG Tab.EC PO SCH (08:12)
[2025-02-19] MEDS: metFORMIN 500 MG Tab PO SCH (08:12)
[2025-02-19] MEDS: busPIRone 15 MG Tab PO SCH (08:12)
[2025-02-19] MEDS: Cholecalciferol (Vitamin D3) 25 MCG Tab PO SCH (08:13)
[2025-02-19] MEDS ORDERED: Warfarin 5 MG Tab PO SCH (09:00)
[2025-02-19] MEDS: Warfarin 2.5 MG Tab PO ONE (16:02)
[2025-02-20 06:56] LABS: INR 2.42 (1.00-1.24); PROTHROMBIN TIME 23.4 sec (9.0-11.1)
[2025-02-20] MEDS: Acetaminophen 325 MG Tab PO PRN (14:27)
[2025-02-20] MEDS: Warfarin 5 MG Tab PO SCH (16:11)
[2025-02-21 07:30] LABS: INR 2.41 (1.00-1.24); PROTHROMBIN TIME 23.3 sec (9.0-11.1)
[2025-02-21] MEDS: Warfarin 2.5 MG Tab PO SCH (17:22)
[2025-02-22 06:42] LABS: INR 2.48 (1.00-1.24); PROTHROMBIN TIME 23.9 sec (9.0-11.1)
[2025-02-23 06:49] LABS: INR 2.15 (1.00-1.24)
[2025-02-24 07:02] LABS: INR 2.48 (1.00-1.24); PROTHROMBIN TIME 23.9 sec (9.0-11.1)
[2025-02-25 07:11] LABS: INR 2.61 (1.00-1.24); PROTHROMBIN TIME 25.1 sec (9.0-11.1)
[2025-02-25] MEDS: Polyethylene Glycol 3350 Powder 17 GM Packet PO PRN (13:57)
[2025-02-26 05:37] VITALS: BP 152/68
[2025-02-26 07:39] LABS: INR 2.35 (1.00-1.24); PROTHROMBIN TIME 22.8 sec (9.0-11.1)
[2025-02-26 13:24] VITALS: PULSE 70
== END 2025-02-26 13:15 | disposition home health service (06) | DRG 948 ==
LOC: FB.MS 12:15
PROVIDERS: ADMIT Family Medicine; ATTEND Internal Medicine
DX: R53.81 Other malaise (principal); I48.0 Paroxysmal atrial fibrillation; H54.7 Unspecified visual loss; I25.10 Atherosclerotic heart disease of native coronary artery without angina pectoris; E78.00 Pure hypercholesterolemia, unspecified; I10 Essential (primary) hypertension; K21.9 Gastro-esophageal reflux disease without esophagitis; M19.90 Unspecified osteoarthritis, unspecified site; H40.9 Unspecified glaucoma; E11.40 Type 2 diabetes mellitus with diabetic neuropathy, unspecified; F41.9 Anxiety disorder, unspecified; F32.A Depression, unspecified; F20.9 Schizophrenia, unspecified; E66.9 Obesity, unspecified; Z68.28 Body mass index [BMI] 28.0-28.9, adult; Z87.440 Personal history of urinary (tract) infections; Z98.890 Other specified postprocedural states; Z90.89 Acquired absence of other organs; Z95.818 Presence of other cardiac implants and grafts; Z88.6 Allergy status to analgesic agent; Z79.899 Other long term (current) drug therapy; Z79.01 Long term (current) use of anticoagulants; Z79.84 Long term (current) use of oral hypoglycemic drugs; Z79.82 Long term (current) use of aspirin; Z86.0100 Personal history of colon polyps, unspecified
CPT/HCPCS: 36415; 82947; 85610; 97110-GO; 97110-GP; 97161-GP; 97165-GO; 97530-GP; 97535-GO; 99305; 99315; A9270-GY

== ENCOUNTER 2025-06-22 18:04 | Emergency (ER) | payer MEDICARE ==
[2025-06-22 18:31] LABS: BASOPHILS ABSOLUTE AUTO 0.1 x10-3/uL (0.0-0.3); BASOPHILS PERCENT AUTO 1.0 % (0.3-3.8); EOSINOPHILS ABSOLUTE AUTO 0.3 x10-3/uL (0.0-0.6); EOSINOPHILS PERCENT AUTO 5.4 % (0.1-6.8); LYMPHOCYTES ABSOLUTE AUTO 1.7 x10-3/uL (0.5-4.5); LYMPHOCYTES PERCENT AUTO 28.6 % (15.8-45.3); MEAN PLATELET VOLUME 8.9 fL (6.7-11.0); MONOCYTES ABSOLUTE AUTO 0.8 x10-3/uL (0.0-1.2); MONOCYTES PERCENT AUTO 13.6 % (5.5-15.2); NEUTROPHILS ABSOLUTE AUTO 3.1 x10-3/uL (1.7-6.9); NEUTROPHILS PERCENT AUTO 51.4 % (40.3-71.8); PLATELET COUNT,PLT 188 x10(3)uL (117-477); RED BLOOD CELL COUNT 4.71 x10(6)uL (3.90-5.90); RED CELL DISTRIBUTION WIDTH 14.8 % (12.4-15.0); WHITE BLOOD CELL COUNT,WBC 6.0 x10-3/uL (3.2-10.1)
[2025-06-22 18:34] LABS: BLOOD UREA NITROGEN,BUN 14 mg/dL (7-18); CARBON DIOXIDE,CO2 31 mmol/L (21-32); CHLORIDE,CL 103 mmol/L (100-110); CREATININE 1.2 mg/dL (0.70-1.30); ESTIMATED GFR 60 mL/min (>60); GLUCOSE RANDOM 137 mg/dL (80-116); POTASSIUM,K 4.2 mmol/L (3.5-5.3); SODIUM,NA 139 mmol/L (135-145)
[2025-06-22 18:39] LABS: A/G RATIO 0.9; ALANINE AMINOTRANSFERASE,ALT 23 U/L (12-36); ASPARTATE AMNIOTRANSFERASE,AST 20 IU/L (5-25); BILIRUBIN TOTAL 0.4 mg/dL (0.1-1.3); PROTEIN TOTAL,TP 7.4 g/dL (6.0-8.0)
[2025-06-22 18:43] LABS: LACTIC ACID 1.8 mmol/L (0.4-2.0)
[2025-06-22 19:41] VITALS: BP 141/74; PULSE 66
[2025-06-22 19:44] LABS: APPEARANCE,URINE SLIGHTLY CLOUDY (CLEAR); GLUCOSE,URINE NORMAL (NORMAL); OCCULT BLOOD,URINE NEGATIVE (NEGATIVE)
[2025-06-22 20:03] LABS: SQUAMOUS EPITHELIAL CELLS,UR RARE (NS,R,O)
== END 2025-06-22 20:35 | disposition home or self-care (01) ==
LOC: FB.ED 18:04
DX: S80.212A Abrasion, left knee, initial encounter (principal); M25.552 Pain in left hip; M54.50 Low back pain, unspecified; I48.91 Unspecified atrial fibrillation; I25.10 Atherosclerotic heart disease of native coronary artery without angina pectoris; E78.00 Pure hypercholesterolemia, unspecified; I10 Essential (primary) hypertension; K21.9 Gastro-esophageal reflux disease without esophagitis; M19.90 Unspecified osteoarthritis, unspecified site; E11.9 Type 2 diabetes mellitus without complications; E66.9 Obesity, unspecified; Z79.01 Long term (current) use of anticoagulants; Z79.82 Long term (current) use of aspirin; Z79.84 Long term (current) use of oral hypoglycemic drugs; Z88.8 Allergy status to other drugs, medicaments and biological substances; Z79.899 Other long term (current) drug therapy; W18.30XA Fall on same level, unspecified, initial encounter
CPT/HCPCS: 36415; 72131; 80053; 81001; 83605; 85025; 86140; 99283; 99284

== ENCOUNTER 2025-07-05 15:08 | Emergency (ER) | payer MEDICAID, MEDICARE ==
[2025-07-05] MEDS ORDERED: Sodium Chloride 0.9% 10 ML Syringe FLUSH PRN (15:23)
[2025-07-05 15:35] LABS: BASOPHILS ABSOLUTE AUTO 0.0 x10-3/uL (0.0-0.3); BASOPHILS PERCENT AUTO 0.6 % (0.3-3.8); EOSINOPHILS ABSOLUTE AUTO 0.3 x10-3/uL (0.0-0.6); EOSINOPHILS PERCENT AUTO 4.4 % (0.1-6.8); LYMPHOCYTES ABSOLUTE AUTO 1.9 x10-3/uL (0.5-4.5); LYMPHOCYTES PERCENT AUTO 27.1 % (15.8-45.3); MEAN PLATELET VOLUME 9.0 fL (6.7-11.0); MONOCYTES ABSOLUTE AUTO 0.8 x10-3/uL (0.0-1.2); MONOCYTES PERCENT AUTO 10.7 % (5.5-15.2); NEUTROPHILS ABSOLUTE AUTO 4.1 x10-3/uL (1.7-6.9); NEUTROPHILS PERCENT AUTO 57.2 % (40.3-71.8); PLATELET COUNT,PLT 224 x10(3)uL (117-477); RED BLOOD CELL COUNT 4.80 x10(6)uL (3.90-5.90); RED CELL DISTRIBUTION WIDTH 14.5 % (12.4-15.0); WHITE BLOOD CELL COUNT,WBC 7.1 x10-3/uL (3.2-10.1)
[2025-07-05 15:37] LABS: BLOOD UREA NITROGEN,BUN 21 mg/dL (7-18); CARBON DIOXIDE,CO2 28 mmol/L (21-32); CHLORIDE,CL 105 mmol/L (100-110); CREATININE 1.1 mg/dL (0.70-1.30); ESTIMATED GFR 66 mL/min (>60); GLUCOSE RANDOM 141 mg/dL (80-116); POTASSIUM,K 4.3 mmol/L (3.5-5.3); SODIUM,NA 140 mmol/L (135-145)
[2025-07-05 15:40] LABS: INR 1.04 (1.00-1.24)
[2025-07-05 15:43] LABS: A/G RATIO 0.8; ALANINE AMINOTRANSFERASE,ALT 22 U/L (12-36); ASPARTATE AMNIOTRANSFERASE,AST 23 IU/L (5-25); BILIRUBIN TOTAL 0.4 mg/dL (0.1-1.3); PROTEIN TOTAL,TP 7.2 g/dL (6.0-8.0)
[2025-07-05 16:35] LABS: GLUCOSE,URINE NORMAL (NORMAL); OCCULT BLOOD,URINE NEGATIVE (NEGATIVE)
[2025-07-05 16:36] LABS: APPEARANCE,URINE CLEAR (CLEAR)
[2025-07-05 17:18] VITALS: BP 147/76; PULSE 70
== END 2025-07-05 22:01 | disposition home or self-care (01) ==
LOC: FB.ED 15:08
DX: R55 Syncope and collapse (principal); S22.31XA Fracture of one rib, right side, initial encounter for closed fracture; E87.22 Chronic metabolic acidosis; I48.92 Unspecified atrial flutter; E86.0 Dehydration; I10 Essential (primary) hypertension; I25.10 Atherosclerotic heart disease of native coronary artery without angina pectoris; I48.91 Unspecified atrial fibrillation; E11.40 Type 2 diabetes mellitus with diabetic neuropathy, unspecified; E66.9 Obesity, unspecified; E78.00 Pure hypercholesterolemia, unspecified; M19.90 Unspecified osteoarthritis, unspecified site; Z79.899 Other long term (current) drug therapy; Z88.8 Allergy status to other drugs, medicaments and biological substances; Z79.01 Long term (current) use of anticoagulants; W19.XXXA Unspecified fall, initial encounter
CPT/HCPCS: 36415; 71101; 80053; 81003; 82272; 83605; 83735; 84484; 85018; 85025; 85610; 86140; 93005; 93010; 96360; 96361; 99284; 99285; A9270; J7030; J7040